=== PATIENT | female | born 1965 | race Caucasian/White ===

== ENCOUNTER → 2017-01-11 | Outpatient (CLI) | payer MEDICAID ==
--- NOTE | 2017-01-11 13:43 | XCELERA REPORT ---
[address] [address] Lower Extremity Venous Evaluation Name: PARMJIT GAMBLE Age: 51 yrs Gender: Female : 1965 Patient Status: Outpatient Patient Location: Study Date: 01/11/2017 10:35 AM Procedure: Color flow and duplex imaging of the veins of the right lower extremity as well as the left Common Femoral vein. Reason For Study: RLE SWELLING Ordering Physician: FIDELIA TORRES Performed By: Kiara Valdes Right Sided Venous Evaluation Normal vessel filling wall to wall, compression and augmentation as well as Colour flow down to the infrageniculate veins. Left Sided Venous Evaluation The left common femoral vein is fully compressible. Spontaneous and phasic flow is present in the left common femoral vein. Interpretation Summary No duplex evidence of DVT or obstruction in the right lower extremity nor in the left Common Femoral vein. : FIDELIA TORRES [place]
== END ==
LOC: SP 10:28
PROVIDERS: ATTEND Specialist
DX: M79.89 Other specified soft tissue disorders (principal); Z92.21 Personal history of antineoplastic chemotherapy
CPT/HCPCS: 93971

== ENCOUNTER → 2017-01-17 | Outpatient (CLI) | payer MEDICAID | LOC: RAD 10:48 | PROVIDERS: ATTEND Specialist | DX: C50.012 Malignant neoplasm of nipple and areola, left female breast (principal) | CPT/HCPCS: 71260; 74160 ==

== ENCOUNTER → 2017-02-22 | Outpatient (CLI) | payer MEDICAID | LOC: RAD 10:19 | PROVIDERS: ATTEND Specialist | DX: C50.012 Malignant neoplasm of nipple and areola, left female breast (principal) | CPT/HCPCS: 78306; A9503; Q9969 ==

== ENCOUNTER → 2017-03-14 | Outpatient (CLI) | payer MEDICAID ==
--- NOTE | 2017-03-14 22:18 | XCELERA REPORT ---
[address] [address] Transthoracic Echocardiogram Report Name: PARMJIT GAMBLE Age: 51 yrs Gender: Female : 1965 Patient Status: Outpatient Patient Location: Study Date: 03/14/2017 11:04 AM Height: 62 in Weight: 198 lb BSA: 1.9 m2 Procedure: A complete two-dimensional transthoracic echocardiogram was performed (2D, M-mode, spectral and color flow Doppler). The study was technically difficult with many images being suboptimal in quality. Reason For Study: ANTHRACYCLINE USE Z51.11 Ordering Physician: FIDELIA TORRES Performed By: Ricki Saravia Interpretation Summary The study was technically difficult with many images being suboptimal in quality. Left ventricular systolic function is borderline reduced. The Ejection Fraction estimate is 50-55% There is normal left ventricular wall thickness. The left ventricle is grossly normal size. Doppler measurements suggest impaired left ventricular relaxation, which is associated with grade I/IV or mild diastolic dysfunction Regional wall motion abnormalities cannot be excluded due to limited visualization. The right ventricular systolic function is normal. The right atrium is normal in size The left atrial size is normal. There is no mitral valve stenosis. There is a mild to moderate amount of mitral regurgitation There is no aortic valve stenosis No aortic regurgitation is present. There is a mild amount of tricuspid regurgitation There is mild pulmonary hypertension by echo Right ventricular systolic pressure is estimated to be elevated at 30- 40mmHg. There is no pericardial effusion. MMode/2D Measurements \T\ Calculations RVDd: 2.8 cm LVIDd: 5.1 cm FS: 30.4 % Ao root diam: 3.1 cm IVSd: 0.79 cm LVIDs: 3.6 cm EDV(Teich): 125.9 ml LVPWd: 0.83 cm ESV(Teich): 53.6 ml Ao root area: 7.6 cm2 EF(Teich): 57.5 % LA dimension: 3.6 cm Doppler Measurements \T\ Calculations MV E max kristian: MV P1/2t max kristian: Ao V2 max: LV V1 max P.6 cm/sec 97.4 cm/sec 107.8 cm/sec 4.5 mmHg MV A max kristian: MV P1/2t: 45.8 msec Ao max PG: LV V1 max: 77.9 cm/sec 4.6 mmHg 105.6 cm/sec MV E/A: 1.3 MVA(P1/2t): 4.8 cm2 MV dec slope: 623.3 cm/sec2 PA V2 max: TR max kristian: RAP systole: 60.7 cm/sec 238.2 cm/sec 10.0 mmHg PA max PG: TR max P.7 mmHg 1.5 mmHg RVSP(TR): 32.7 mmHg Left Ventricle The left ventricle is grossly normal size. There is normal left ventricular wall thickness. Left ventricular systolic function is borderline reduced. The Ejection Fraction estimate is 50-55%. Doppler measurements suggest impaired left ventricular relaxation, which is associated with grade I/IV or mild diastolic dysfunction. Regional wall motion abnormalities cannot be excluded due to limited visualization. Right Ventricle The right ventricle is grossly normal size. There is normal right ventricular wall thickness. The right ventricular systolic function is normal. Atria The right atrium is normal in size. The left atrial size is normal. Interarterial septum not well visualized and not well dopplered. Cannot comment on ASD/PFO presence. Mitral Valve The mitral valve leaflets are sclerotic, but show no functional abnormalities. There is no mitral valve stenosis. There is a mild to moderate amount of mitral regurgitation. Aortic Valve The aortic valve is grossly normal. There is no aortic valve stenosis. No aortic regurgitation is present. Tricuspid Valve The tricuspid valve is not well visualized, but is grossly normal. There is no tricuspid stenosis. There is a mild amount of tricuspid regurgitation. There is mild pulmonary hypertension by echo. Right ventricular systolic pressure is estimated to be elevated at 30-40mmHg. Pulmonic Valve The pulmonic valve is not well visualized. Great Vessels The aortic root is not well visualized but is probably normal size. The inferior vena cava appeared normal and decreased > 50% with respiration (RAP 5-10 mmHg). Effusions There is no pericardial effusion. : FIDELIA TORRES > Lana Latif
== END ==
LOC: SP 10:46
PROVIDERS: ATTEND Specialist
DX: Z51.11 Encounter for antineoplastic chemotherapy (principal)
CPT/HCPCS: 93306

== ENCOUNTER → 2017-03-22 | Outpatient (CLI) | payer MEDICAID | LOC: RAD 16:06 | PROVIDERS: ATTEND Student in an Organized Health Care Education/Training Program | DX: M75.01 Adhesive capsulitis of right shoulder (principal); M79.641 Pain in right hand ==

== ENCOUNTER → 2017-04-07 | Outpatient (CLI) | payer MEDICAID | LOC: RAD 09:44 | PROVIDERS: ATTEND Student in an Organized Health Care Education/Training Program | DX: M75.01 Adhesive capsulitis of right shoulder (principal); M25.512 Pain in left shoulder ==

== ENCOUNTER → 2017-05-06 | Outpatient (CLI) | payer MEDICAID ==
--- NOTE | 2017-05-06 12:46 | RADIOLOGY REPORT (SQ) ---
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 Reconstructed coronal and sagittal MPR images reviewed. All images stored on PACS. All CT scanners at this facility use dose modulation, iterative reconstruction, and/or weight based d osing when appropriate to reduce radiation dose to as low as reasonably achievable (ALARA). [facility]: Dose Right [facility]: CareDose [facility]: Dose Right [facility]: Teradose 4D [facility]: [employer] CONTRAST TYPE AND DOSE: contrast/concentration: Isovue 370.00 mg/ml; Total Contrast Delivered: 94.0 ml; Total Saline Delivered: 70.0 ml RENAL FUNCTION: Creatinine 0.8 RADIATION DOSE: 17 mGy . LIMITATIONS: None FINDINGS: SKULL BASE: Intact. Inferior brain parenchyma unremarkable MAJOR SALIVARY GLANDS: No solid or cystic masses. No inflammatory changes. LYMPHADENOPATHY: 2 x 1.6 cm supraclavicular lymph node axial image 55. This is new compared to prior CT soft tissue neck 04/05/2014 and was not included in the field of view of CT chest 01/17/2017. Smaller supraclavicular lymph nodes are present, new compared to [address] chest 01/17/2017 as follo ws: 7 x 6 mm image 63 6 x 5 mm image 60 7 x 6 mm image 59 A new small lymph node is present deep to the left pectoralis major muscle on axial image 89, 10 x 9 mm. MUCOSAL MASSES OR ASYMMETRY: No mucosal masses or asymmetry. LARYNX/CORDS: No abnormal findings. VASCULAR STRUCTURES: The major vessels are patent. LUNG APICES: Clear. BONES: Stable less than 5 mm bone island in the leftward aspect of T1, unchanged from 04/05/2014. THYROID: Normal size. No masses. PARANASAL SINUSES: Clear. OTHER: No other significant finding. IMPRESSION: Left supraclavicular adenopathy New 10 x 9 mm node between the pectoralis major and minor muscles TECHNICAL DOCUMENTATION: JOB ID: [id number] Quality ID # 436: Final reports with documentation of one or more dose reduction techniques (e.g., Au tomated exposure control, adjustment of the mA and/or kV according to patient size, use of iterative reconstruction technique) 2010 [employer]- All Rights Reserved
--- NOTE | 2017-05-06 13:02 | RADIOLOGY REPORT (SQ) ---
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 RENAL FUNCTION: Creatinine 0.8 TECHNIQUE: CT scan of the chest performed using helical scanning technique with dynamic intravenous contrast injection. Images reviewed with lung, soft tissue and bone windows. Reconstructed coronal a nd sagittal MPR images reviewed. All images stored on PACS. CT scan of the abdomen and pelvis performed with intravenous and with oral contrastusing helical scan henry technique with dynamic intravenous contrast injection. Images reviewed with lung, soft tissue a nd bone windows. Reconstructed coronal and sagittal MPR images reviewed. Delayed images for evaluat ion of the urinary system also acquired and evaluated. All images stored on PACS. All CT scanners at this facility use dose modulation, iterative reconstruction, and/or weight based d osing when appropriate to reduce radiation dose to as low as reasonably achievable (ALARA). [facility]: Dose Right [facility]: CareDose [facility]: Dose Right [facility]: Teradose 4D [facility]: [employer] RADIATION DOSE: Total combined dose 45 mGy . LIMITATIONS: None. FINDINGS: CHEST: LUNGS AND PLEURA: No worrisome opacities, nodules, masses. No pneumothorax. No effusions. Bandlike scarring in the lateral aspect of the right middle lobe adjacent to healed rib fractures HILAR AND MEDIASTINAL STRUCTURES: No identified masses or abnormal nodes. HEART AND VASCULAR STRUCTURES: No aneurysm or dissection. No central pulmonary emboli. No pericardi al effusion. HARDWARE: Right-sided permanent central line tip superior vena cava. Surgical clips left chest wall and axilla post left mastectomy THYROID AND OTHER SOFT TISSUES: Post left mastectomy. BONES: No gross lytic or blastic metastatic lesions OTHER: No other significant finding. ABDOMEN AND PELVIS: LIVER: Normal size. No masses or dilated ducts. SPLEEN: Normal size. No focal lesions. PANCREAS: No masses. No significant calcifications. No adjacent inflammation or peripancreatic fluid collections. Pancreatic duct not dilated. GALLBLADDER: Surgically absent ADRENAL GLANDS: No significant masses or asymmetry. RIGHT KIDNEY AND URETER: No solid masses. No significant calcification. No hydronephrosis or hydroure ter. Right lower pole kidney 1.4 cm simple cyst LEFT KIDNEY AND URETER: No solid masses. No significant calcification. No hydronephrosis or hydrouret er. AORTA AND VESSELS: No aneurysm. No dissection. Renal arteries, SMA, celiac without stenosis. RETROPERITONEUM: No retroperitoneal adenopathy, hemorrhage or masses. BOWEL AND PERITONEAL CAVITY: No masses or inflammatory changes. No free fluid or peritoneal masses. Descending and proximal sigmoid colon diverticuli without CT evidence of acute diverticulitis. APPENDIX: Normal. ABDOMINAL WALL: No masses. No hernias. BONES: Bony sclerosis in the rightward L3 pedicle and vertebral body new compared to previous studies worrisome for metastatic disease. OTHER: No other significant finding. IMPRESSION: Post left mastectomy. New 10 x 9 mm lymph node between the left pectoralis major and mi nor muscles worrisome for malignancy New sclerotic lesion in the right L3 pedicle worrisome for bony metastatic disease TECHNICAL DOCUMENTATION: JOB ID: [id number] Quality ID # 436: Final reports with documentation of one or more dose reduction techniques (e.g., Au tomated exposure control, adjustment of the mA and/or kV according to patient size, use of iterative reconstruction technique) 2010 [employer]- All Rights Reserved
== END ==
LOC: RAD 08:37
PROVIDERS: ATTEND Specialist
DX: C50.012 Malignant neoplasm of nipple and areola, left female breast (principal); M54.2 Cervicalgia
CPT/HCPCS: 70491; 71260; 74177

== ENCOUNTER → 2017-06-07 | Outpatient (CLI) | payer MEDICAID ==
--- NOTE | 2017-06-07 16:55 | RADIOLOGY REPORT (SQ) ---
EXAM DESCRIPTION: MRI LT UPPER JOINT WITHOUT COMPLETED DATE/TIME: 06/07/2017 3:59 pm REASON FOR STUDY: PAIN IN LEFT SHOULDER M25.512 PAIN IN LEFT SHOULDER COMPARISON: None. TECHNIQUE: Left shoulder images acquired and stored on PACS. Multiplanar imaging to include fat sens itive sequences such as T1, water sensitive sequences such as FST2/STIR, cartilage sensitive sequence s such as FSPD/gradient-echo sequences. LIMITATIONS: None. FINDINGS: BONE MARROW AND CORTEX: No worrisome bone lesions or marrow replacement. No occult fractur es. JOINT OR BURSAL EFFUSION: Physiologic glenohumeral joint space fluid. Moderate fluid in the subacrom ial/subdeltoid bursa GLENO-HUMERAL ARTICULATION: Normal articulation. No subluxation. No cystic change. No osteophytes or cartilage loss. ACROMION AND AC JOINT: Type 2 No down-sloping or distal spur. Sub-acromial space maintained. No sig nificant AC joint arthropathy. ROTATOR CUFF AND INTERVAL: There is thickening throughout the supraspinatus tendon, with small full-t hickness tears along the anterior edge and posterior edge of the supraspinatus tendon, best shown on sagittal image 5 and coronal images 7 and 9. Infraspinatus, subscapularis intact. No rotator interval tear. No rotator interval thickening to suggest adhesive capsulitis. LABRUM AND BICEPS LABRAL COMPLEX: Intra-articular long head biceps tendon is thickened and high in signal from tendinopathy. Diffusely small irregular glenoid labrum. REMAINDER OF LABRUM AND IGHL : No gross tear or paralabral cyst formation. Labral evaluation is less than optimal without joint distention. No thickening of IGHL to suggest adhesive capsulitis. PERIARTICULAR AND ADJACENT SOFT TISSUES: No masses or abnormal nodes. OTHER: No other significant finding. IMPRESSION: Supraspinatus tendinopathy with small full-thickness anterior and posterior edge tears. Intra-articular long-head biceps tendinopathy with diffusely abnormal labrum TECHNICAL DOCUMENTATION: JOB ID: [id number] [employer]- All Rights Reserved
== END ==
LOC: RAD 14:43
PROVIDERS: ATTEND Student in an Organized Health Care Education/Training Program
DX: M75.102 Unspecified rotator cuff tear or rupture of left shoulder, not specified as traumatic (principal); M25.512 Pain in left shoulder

== ENCOUNTER → 2017-09-14 | Outpatient (CLI) | payer MEDICAID ==
--- NOTE | 2017-09-14 11:06 | RADIOLOGY REPORT (SQ) ---
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 Reconstructed coronal and sagittal MPR images reviewed. All images stored on PACS. All CT scanners at this facility use dose modulation, iterative reconstruction, and/or weight based d osing when appropriate to reduce radiation dose to as low as reasonably achievable (ALARA). [facility]: Dose Right [facility]: CareDose [facility]: Dose Right [facility]: Teradose 4D [facility]: [employer] CONTRAST TYPE AND DOSE: contrast/concentration: Isovue 370.00 mg/ml; Total Contrast Delivered: 95.0 ml; Total Saline Delivered: 65.0 ml RENAL FUNCTION: Creatinine 0.9 RADIATION DOSE: Up-to-date CT equipment and radiation dose reduction techniques were employed. CTDIv ol: 18.3 - 28.9 mGy. DLP: 4415 mGy-cm. . LIMITATIONS: None. FINDINGS: SKULL BASE: Intact. MAJOR SALIVARY GLANDS: No solid or cystic masses. No inflammatory changes. LYMPHADENOPATHY: Left supraclavicular lymph nodes are present as follows: 1.9 x 1.3 cm axial image 49 (was 2.1 x 1.6 cm on 05/06/2017) 6.5 mm axial image 53 (was 7 mm 05/06/2017) 3 mm axial image 53 (was 6 mm 05/06/2017) MUCOSAL MASSES OR ASYMMETRY: No mucosal masses or asymmetry. LARYNX/CORDS: No abnormal findings. VASCULAR STRUCTURES: The major vessels are patent. LUNG APICES: Clear. BONES: 5 mm sclerotic focus in the left T7 vertebral body unchanged since 2013 THYROID: Normal size. No masses. PARANASAL SINUSES: Clear. OTHER: No other significant finding. IMPRESSION: Slight decrease in size of the left supraclavicular lymph nodes as compared to prior CT exam 05/06/2017. TECHNICAL DOCUMENTATION: JOB ID: [id number] Quality ID # 436: Final reports with documentation of one or more dose reduction techniques (e.g., Au tomated exposure control, adjustment of the mA and/or kV according to patient size, use of iterative reconstruction technique) 2010 [employer]- All Rights Reserved
--- NOTE | 2017-09-14 11:23 | RADIOLOGY REPORT (SQ) ---
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 RENAL FUNCTION: Creatinine 0.9 TECHNIQUE: CT scan of the chest performed using helical scanning technique with dynamic intravenous contrast injection. Images reviewed with lung, soft tissue and bone windows. Reconstructed coronal a nd sagittal MPR images reviewed. All images stored on PACS. CT scan of the abdomen and pelvis performed with intravenous and without oral contrastusing helical s klaudia technique with dynamic intravenous contrast injection. Images reviewed with lung, soft tissu e and bone windows. Reconstructed coronal and sagittal MPR images reviewed. Delayed images for eval uation of the urinary system also acquired and evaluated. All images stored on PACS. All CT scanners at this facility use dose modulation, iterative reconstruction, and/or weight based d osing when appropriate to reduce radiation dose to as low as reasonably achievable (ALARA). [facility]: Dose Right [facility]: CareDose [facility]: Dose Right [facility]: Teradose 4D [facility]: [employer] RADIATION DOSE: Total combined [address] chest abdomen pelvis. LIMITATIONS: None. FINDINGS: CHEST: LUNGS AND PLEURA: Stable bandlike scarring in the periphery of the right middle and lower lobes on ax ial image 30, unchanged from 04/05/2014. No worrisome pulmonary nodules. No acute infiltrates. No pleural effusion. No pneumothorax. HILAR AND MEDIASTINAL STRUCTURES: No identified masses or abnormal nodes. Small hiatal hernia HEART AND VASCULAR STRUCTURES: No aneurysm or dissection. No central pulmonary emboli. No pericardi al effusion. HARDWARE: Surgical clips post resection of the left-sided axillary lymph nodes. Old left mastectomy. Right permanent central line tip superior vena cava. THYROID AND OTHER SOFT TISSUES: No masses. No adenopathy. BONES: Diffuse degenerative changes thoracic spine OTHER: No other significant finding. ABDOMEN AND PELVIS: LIVER: Normal size. No masses. No dilated ducts. SPLEEN: Normal size. No focal lesions. PANCREAS: No masses. No significant calcifications. No adjacent inflammation or peripancreatic fluid collections. Pancreatic duct not dilated. GALLBLADDER: Surgically absent ADRENAL GLANDS: No significant masses or asymmetry. RIGHT KIDNEY AND URETER: No solid masses. Less than 2 cm cyst right lower pole kidney. No significa nt calcification. No hydronephrosis or hydroureter. LEFT KIDNEY AND URETER: No solid masses. No significant calcification. No hydronephrosis or hydrouret er. AORTA AND VESSELS: No aneurysm. No dissection. Renal arteries, SMA, celiac without stenosis. RETROPERITONEUM: No retroperitoneal adenopathy, hemorrhage or masses. BOWEL AND PERITONEAL CAVITY: No masses or inflammatory changes. No free fluid or peritoneal masses. APPENDIX: Normal. ABDOMINAL WALL: No masses. No hernias. BONES: 1 cm sclerotic lesion right L3 pedicle unchanged from PET-CT 07/25/2016. PELVIS: No other significant finding. No adenopathy. No free fluid. Normal size female pelvic orga ns. IMPRESSION: Left axillary lymph nodes seen 05/06/2017 have been resected. 1 cm focus of bony sclerosis in the right L3 pedicle is unchanged from PET-CT 07/25/[address] OF THE ABDOMEN AND PELVIS WITH ORAL AND INTRAVENOUS CONTRAST. TECHNICAL DOCUMENTATION: JOB ID: [id number] Quality ID # 436: Final reports with documentation of one or more dose reduction techniques (e.g., Au tomated exposure control, adjustment of the mA and/or kV according to patient size, use of iterative reconstruction technique) 2010 [employer]- All Rights Reserved
--- NOTE | 2017-09-14 12:57 | RADIOLOGY REPORT (SQ) ---
EXAM DESCRIPTION: NM WHOLE BODY BONE SCAN COMPLETED DATE/TIME: 09/14/2017 11:52 am REASON FOR STUDY: MAL TITO OF NIPPLE/AREOLA. 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 ADDITIONAL DRUGS AND DOSES: None. TECHNIQUE: Routine delayed images at 3 hours post radionuclide injection acquired of the bony skelet on including anterior and posterior whole-body projections and additional focused images as needed. LIMITATIONS: None. FINDINGS: BONES: There is focal increased uptake in the left frontal skull that is new. No signific ant abnormality is seen in the left shoulder, neck, or lumbar spine. No abnormal uptake is seen in a reas in the cervical and lumbar spine where by history the patient has metastases. KIDNEYS: Symmetric excretion without obstruction. OTHER: No other significant finding. IMPRESSION: There is a new area of focal uptake left frontal aspect of the skull. No other signific ant abnormal skeletal uptake is demonstrated. COMMENT: Quality measure 147: Current bone scan is compared with any available plain radiographs, p rior bone scans, and CT/MRI. TECHNICAL DOCUMENTATION: JOB ID: [id number] [employer]- All Rights Reserved
== END ==
LOC: RAD 08:06
PROVIDERS: ATTEND Internal Medicine
DX: C50.012 Malignant neoplasm of nipple and areola, left female breast (principal)
CPT/HCPCS: 78306; 70491; 71260; 74177; A9561

== ENCOUNTER → 2017-12-12 | Outpatient (CLI) | payer MEDICAID, OTHER ==
--- NOTE | 2017-12-12 16:52 | RADIOLOGY REPORT (SQ) ---
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 Reconstructed coronal and sagittal MPR images reviewed. All images stored on PACS. All CT scanners at this facility use dose modulation, iterative reconstruction, and/or weight based d osing when appropriate to reduce radiation dose to as low as reasonably achievable (ALARA). [facility]: Dose Right [facility]: CareDose [facility]: Dose Right [facility]: Teradose 4D [facility]: [employer] CONTRAST TYPE AND DOSE: 90 mL of Isovue 370 RENAL FUNCTION: Creatinine 0.7 RADIATION DOSE: 16.3 mGy . LIMITATIONS: None. FINDINGS: SKULL BASE: Intact. MAJOR SALIVARY GLANDS: No solid or cystic masses. No inflammatory changes. LYMPHADENOPATHY: No adenopathy. MUCOSAL MASSES OR ASYMMETRY: No mucosal masses or asymmetry. LARYNX/CORDS: No abnormal findings. VASCULAR STRUCTURES: The major vessels are patent. LUNG APICES: Clear. BONES: Intact. THYROID: Normal size. No masses. PARANASAL SINUSES: Clear. OTHER: Right-sided permanent central line tip superior vena cava IMPRESSION: NO SIGNIFICANT FINDING IN THE SOFT TISSUES OF THE NECK. TECHNICAL DOCUMENTATION: JOB ID: [id number] Quality ID # 436: Final reports with documentation of one or more dose reduction techniques (e.g., Au tomated exposure control, adjustment of the mA and/or kV according to patient size, use of iterative reconstruction technique) 2010 [employer]- All Rights Reserved
--- NOTE | 2017-12-12 16:56 | RADIOLOGY REPORT (SQ) ---
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 The route of agent administration: Intravenous. ADDITIONAL DRUGS AND DOSES: None. TECHNIQUE: Routine delayed images at 3 hours post radionuclide injection acquired of the bony skelet on including anterior and posterior whole-body projections and additional focused images as needed. LIMITATIONS: None. FINDINGS: BONES: Focal area of abnormal increase uptake again seen in the left frontal region the sk ull, stable prior study. No additional areas of abnormal uptake identified. KIDNEYS: Symmetric excretion without obstruction. OTHER: No other significant finding. IMPRESSION: Stable appearance. Small focal area of abnormal uptake again seen left frontal region of the skull. COMMENT: Quality measure 147: TECHNICAL DOCUMENTATION: JOB ID: [id number] [employer]- All Rights Reserved
--- NOTE | 2017-12-12 17:11 | RADIOLOGY REPORT (SQ) ---
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 Images reviewed with lung, soft tissue and bone windows. Reconstructed coronal a nd sagittal MPR images reviewed. All images stored on PACS. CT scan of the abdomen and pelvis performed with intravenous and without oral contrastusing helical s klaudia technique with dynamic intravenous contrast injection. Images reviewed with lung, soft tissu e and bone windows. Reconstructed coronal and sagittal MPR images reviewed. Delayed images for eval uation of the urinary system also acquired and evaluated. All images stored on PACS. All CT scanners at this facility use dose modulation, iterative reconstruction, and/or weight based d osing when appropriate to reduce radiation dose to as low as reasonably achievable (ALARA). [facility]: Dose Right [facility]: CareDose [facility]: Dose Right [facility]: Teradose 4D [facility]: [employer] RADIATION DOSE: CT Rad equipment meets quality standard of care and radiation dose reduction techniq ues were employed. CTDIvol: 16.3 - 23.4 mGy. DLP: 3143 mGy-cm. . LIMITATIONS: None. FINDINGS: CHEST: LUNGS AND PLEURA: Stable bandlike scarring along the periphery of the right upper lobe. No worrisome pulmonary nodules. No pleural effusion. No pneumothorax. HILAR AND MEDIASTINAL STRUCTURES: No identified masses or abnormal nodes. HEART AND VASCULAR STRUCTURES: No aneurysm or dissection. No central pulmonary emboli. No pericardi al effusion. Stable mild cardiomegaly HARDWARE: Old right permanent central line tip superior vena cava. Caps. THYROID AND OTHER SOFT TISSUES: No masses. No adenopathy. Specifically, no recurrent left axillary adenopathy BONES: Stable 5 mm focus of bony sclerosis in the left C7 vertebral body, unchanged since 04/05/2014. OTHER: No other significant finding. ABDOMEN AND PELVIS: LIVER: Normal size. No masses. No dilated ducts. SPLEEN: Normal size. No focal lesions. PANCREAS: No masses. No significant calcifications. No adjacent inflammation or peripancreatic fluid collections. Pancreatic duct not dilated. GALLBLADDER: Surgically absent ADRENAL GLANDS: Mild diffuse stable adrenal enlargement RIGHT KIDNEY AND URETER: No solid masses. 1.7 cm cyst right lower pole kidney. No significant calci fication. No hydronephrosis or hydroureter. LEFT KIDNEY AND URETER: No solid masses. No significant calcification. No hydronephrosis or hydrouret er. AORTA AND VESSELS: No aneurysm. No dissection. Renal arteries, SMA, celiac without stenosis. RETROPERITONEUM: No retroperitoneal adenopathy, hemorrhage or masses. BOWEL AND PERITONEAL CAVITY: No masses or inflammatory changes. No free fluid or peritoneal masses. APPENDIX: Normal. ABDOMINAL WALL: No masses. No hernias. BONES: Stable 12 mm focus of bony sclerosis right L3 pedicle, unchanged since 07/25/2016 OTHER: No other significant finding. IMPRESSION: Post left mastectomy. No CT findings metastatic breast cancer over the chest Post cholecystectomy. Stable bony sclerosis right L3 pedicle compared to 07/25/2016 TECHNICAL DOCUMENTATION: JOB ID: [id number] Quality ID # 436: Final reports with documentation of one or more dose reduction techniques (e.g., Au tomated exposure control, adjustment of the mA and/or kV according to patient size, use of iterative reconstruction technique) 2010 [employer]- All Rights Reserved
== END ==
LOC: RAD 10:46
PROVIDERS: ATTEND Internal Medicine
DX: C50.012 Malignant neoplasm of nipple and areola, left female breast (principal); C79.51 Secondary malignant neoplasm of bone; Z90.12 Acquired absence of left breast and nipple
CPT/HCPCS: 78306; 70491; 71260; 74177; A9561; Q9969

== ENCOUNTER → 2018-03-14 | Outpatient (CLI) | payer MEDICAID ==
--- NOTE | 2018-03-14 13:25 | RADIOLOGY REPORT (SQ) ---
EXAM DESCRIPTION: CT SOFT TISSUE NECK WITH COMPLETED DATE/TIME: 03/14/2018 9:29 am REASON FOR STUDY: BREAST CA C50.012 MALIGNANT NEOPLASM OF NIPPLE AND AREOLA, LEFT FEMALE COMPARISON: CT soft tissue neck 05/06/2017, 09/14/2017, 12/12/2017 TECHNIQUE: Post IV contrasted scanning from skull base through lung apices with review of bone, soft tissue and lung windows. Reconstructed coronal and sagittal MPR images reviewed. All images stored on PACS. All CT scanners at this facility use dose modulation, iterative reconstruction, and/or weight based d osing when appropriate to reduce radiation dose to as low as reasonably achievable (ALARA). [facility]: Dose Right [facility]: CareDose [facility]: Dose Right [facility]: Teradose 4D [facility]: [employer] CONTRAST TYPE AND DOSE: 90 mL Isovue 370- low osmolar. RENAL FUNCTION: Creatinine 0.8 RADIATION DOSE: 16 mGy . LIMITATIONS: None FINDINGS: SKULL BASE: Inferior brain parenchyma in the field of view unremarkable MAJOR SALIVARY GLANDS: No solid or cystic masses. No inflammatory changes. LYMPHADENOPATHY: The 1.4 x 1.1 cm left supraclavicular lymph node is present (was 1.7 x 1.2 cm on 11/22, was 1.9 x 1.3 cm on 09/14/2017). A 7 mm left supraclavicular lymph node is present on image 60 (was 7 mm on 12/12/2017, 09/14/2017, 05/06/2017). MUCOSAL MASSES OR ASYMMETRY: No mucosal masses or asymmetry. LARYNX/CORDS: No abnormal findings. VASCULAR STRUCTURES: The major vessels are patent. LUNG APICES: Clear. BONES: Benign 5 mm sclerotic focus left 7 vertebral body unchanged THYROID: Normal size. No masses. PARANASAL SINUSES: Clear. OTHER: No other significant finding. IMPRESSION: Small left supraclavicular lymph nodes. Otherwise unremarkable study. TECHNICAL DOCUMENTATION: JOB ID: [id number] Quality ID # [id number]: Final reports with documentation of one or more dose reduction techniques (e.g., Au tomated exposure control, adjustment of the mA and/or kV according to patient size, use of iterative reconstruction technique) 2010 [employer]- All Rights Reserved Reading location - IP/workstation name: [facility]
--- NOTE | 2018-03-14 13:48 | RADIOLOGY REPORT (SQ) ---
EXAM DESCRIPTION: CT CHEST WITH; CT ABD/PELVIS WITH IV ONLY COMPLETED DATE/TIME: 03/14/2018 9:29 am REASON FOR STUDY: BREAST CA C50.012 MALIGNANT NEOPLASM OF NIPPLE AND AREOLA, LEFT FEMALE COMPARISON: 04/05/2014, 12/24/2015, 09/14/2017, 12/12/2017 CONTRAST TYPE AND DOSE: contrast/concentration: Isovue 370.00 mg/ml; Total Contrast Delivered: 90.0 ml; Total Saline Delivered: 70.0 ml 90 mL IV Isovue 370- low osmolar. RENAL FUNCTION: Creatinine 0.8 TECHNIQUE: CT scan of the chest performed using helical scanning technique with dynamic intravenous contrast injection. Images reviewed with lung, soft tissue and bone windows. Reconstructed coronal a nd sagittal MPR images reviewed. All images stored on PACS. CT scan of the abdomen and pelvis performed with intravenous and without oral contrastusing helical s klaudia technique with dynamic intravenous contrast injection. Images reviewed with lung, soft tissu e and bone windows. Reconstructed coronal and sagittal MPR images reviewed. Delayed images for eval uation of the urinary system also acquired and evaluated. All images stored on PACS. All CT scanners at this facility use dose modulation, iterative reconstruction, and/or weight based d osing when appropriate to reduce radiation dose to as low as reasonably achievable (ALARA). [facility]: Dose Right [facility]: CareDose [facility]: Dose Right [facility]: Teradose 4D [facility]: [employer] RADIATION DOSE: Total radiation dose is 42.8 mGy for the chest abdomen pelvis exam . LIMITATIONS: None. FINDINGS: CHEST: LUNGS AND PLEURA: No worrisome lung nodules. Bandlike scarring along the right lower lateral lung is unchanged. No pleural effusion. No pneumothorax. HILAR AND MEDIASTINAL STRUCTURES: No identified masses or abnormal nodes. Small hiatal hernia HEART AND VASCULAR STRUCTURES: No aneurysm or dissection. No central pulmonary emboli. No pericardi al effusion. HARDWARE: Right-sided permanent central line tip superior vena cava THYROID AND OTHER SOFT TISSUES: Post left mastectomy BONES: No significant finding. OTHER: Small left supraclavicular lymph nodes are decreased in size compared to previous exams. Plea se see CT soft tissue neck for further details. ABDOMEN AND PELVIS: LIVER: Normal size. No masses. No dilated ducts. SPLEEN: Normal size. No focal lesions. PANCREAS: No masses. No significant calcifications. No adjacent inflammation or peripancreatic fluid collections. Pancreatic duct not dilated. GALLBLADDER: Surgically absent ADRENAL GLANDS: No significant masses or asymmetry. RIGHT KIDNEY AND URETER: No solid masses. 1.6 cm right lower pole renal cortical cyst. No significa nt calcification. No hydronephrosis or hydroureter. LEFT KIDNEY AND URETER: No solid masses. No significant calcification. No hydronephrosis or hydrouret er. AORTA AND VESSELS: No aneurysm. No dissection. Renal arteries, SMA, celiac without stenosis. RETROPERITONEUM: No retroperitoneal adenopathy, hemorrhage or masses. BOWEL AND PERITONEAL CAVITY: No masses or inflammatory changes. No free fluid or peritoneal masses. APPENDIX: Normal. ABDOMINAL WALL: No masses. No hernias. PELVIS: No mass or free fluid. Normal bladder. Normal size female pelvic organs BONES: Stable 11 mm sclerotic lesion right L3 pedicle OTHER: No other significant finding. IMPRESSION: Post left mastectomy No CT evidence of progression of disease over the chest abdomen and pelvis TECHNICAL DOCUMENTATION: JOB ID: [id number] Quality ID # 436: Final reports with documentation of one or more dose reduction techniques (e.g., Au tomated exposure control, adjustment of the mA and/or kV according to patient size, use of iterative reconstruction technique) 2010 [employer]- All Rights Reserved Reading location - IP/workstation name: [email or web address]
--- NOTE | 2018-03-14 13:50 | RADIOLOGY REPORT (SQ) ---
EXAM DESCRIPTION: NM WHOLE BODY BONE SCAN COMPLETED DATE/TIME: 03/14/2018 12:06 pm REASON FOR STUDY: MAL TITO OF NIPPLE AND AREOLA, LEFT FEMALE BREAST C50.012 MALIGNANT NEOPLASM OF NI PPLE AND AREOLA, LEFT FEMALE COMPARISON: Bone scan 04/03/2014, 12/29/2015, 09/14/2017, 12/12/[address] chest abdomen pelvis exams RADIONUCLIDE AND DOSE: 21 millicuries Tc99m MDP. The route of agent administration: Intravenous. ADDITIONAL DRUGS AND DOSES: None. TECHNIQUE: Routine delayed images at 3 hours post radionuclide injection acquired of the bony skelet on including anterior and posterior whole-body projections and additional focused images as needed. LIMITATIONS: None. FINDINGS: BONES: There is a small focus of increased uptake over the left frontal calvarium, stable compared to 12/12/2017 and 09/14/2017. Tiny 5 mm sclerotic focus in the C7 vertebral body, 1 cm sclerotic focus in the right L3 pedicle are not apparent by bone scan. KIDNEYS: Symmetric excretion without obstruction. OTHER: No other significant finding. IMPRESSION: Stable bone scan compared to 12/12/2017 and 09/14/2017 COMMENT: Quality measure 147: Current bone scan is compared with any available plain radiographs, p rior bone scans, and CT/MRI. TECHNICAL DOCUMENTATION: JOB ID: [id number] [employer]- All Rights Reserved Reading location - IP/workstation name: [facility]-RR
== END ==
LOC: RAD 08:19
PROVIDERS: ATTEND Internal Medicine
DX: C50.012 Malignant neoplasm of nipple and areola, left female breast (principal); Z90.12 Acquired absence of left breast and nipple
CPT/HCPCS: 82565; 78306; 70491; 71260; 74177; A9561; Q9969

== ENCOUNTER → 2018-06-09 | Outpatient (CLI) | payer MEDICAID ==
--- NOTE | 2018-06-09 12:16 | RADIOLOGY REPORT (SQ) ---
EXAM DESCRIPTION: CT SOFT TISSUE NECK WITH COMPLETED DATE/TIME: 06/09/2018 11:21 am REASON FOR STUDY: BREAST CA C50.012 MALIGNANT NEOPLASM OF NIPPLE AND AREOLA, LEFT FEMALE COMPARISON: Whole-body bone scan 03/14/2018 CT soft tissue neck 03/14/2018, 12/12/2017, 04/05/2014 TECHNIQUE: Post IV contrasted scanning from skull base through lung apices with review of bone, soft tissue and lung windows. Reconstructed coronal and sagittal MPR images reviewed. All images stored on PACS. All CT scanners at this facility use dose modulation, iterative reconstruction, and/or weight based d osing when appropriate to reduce radiation dose to as low as reasonably achievable (ALARA). [facility]: Dose Right [facility]: CareDose [facility]: Dose Right [facility]: Teradose 4D [facility]: [employer] CONTRAST TYPE AND DOSE: 82 mL of IV Isovue 370- low osmolar. RENAL FUNCTION: Creatinine 0.7 RADIATION DOSE: 14 mGy . LIMITATIONS: None. FINDINGS: SKULL BASE: Intact. MAJOR SALIVARY GLANDS: No solid or cystic masses. No inflammatory changes. LYMPHADENOPATHY: Unchanged left supraclavicular lymph node 1.4 x 1.1 cm in size axial image 62. Unch anged left supraclavicular 7 x 7 mm lymph node axial image 71. MUCOSAL MASSES OR ASYMMETRY: No mucosal masses or asymmetry. LARYNX/CORDS: No abnormal findings. VASCULAR STRUCTURES: The major vessels are patent. LUNG APICES: Clear. BONES: Intact. THYROID: Normal size. No masses. PARANASAL SINUSES: Clear. OTHER: No other significant finding. IMPRESSION: Stable left supraclavicular lymph nodes TECHNICAL DOCUMENTATION: JOB ID: [id number] Quality ID # 436: Final reports with documentation of one or more dose reduction techniques (e.g., Au tomated exposure control, adjustment of the mA and/or kV according to patient size, use of iterative reconstruction technique) 2010 [employer]- All Rights Reserved Reading location - IP/workstation name: [email or web address]
--- NOTE | 2018-06-09 12:30 | RADIOLOGY REPORT (SQ) ---
EXAM DESCRIPTION: CT CHEST WITH; CT ABD/PELVIS WITH IV ONLY COMPLETED DATE/TIME: 06/09/2018 11:21 am REASON FOR STUDY: BREAST CA C50.012 MALIGNANT NEOPLASM OF NIPPLE AND AREOLA, LEFT FEMALE COMPARISON: Bone scan 03/14/2018 CT chest abdomen and pelvis 03/14/2018, 12/12/2017 CONTRAST TYPE AND DOSE: contrast/concentration: Isovue 370.00 mg/ml; Total Contrast Delivered: 82.0 ml; Total Saline Delivered: 68.0 ml RENAL FUNCTION: Creatinine 0.7 TECHNIQUE: CT scan of the chest performed using helical scanning technique with dynamic intravenous contrast injection. Images reviewed with lung, soft tissue and bone windows. Reconstructed coronal a nd sagittal MPR images reviewed. All images stored on PACS. CT scan of the abdomen and pelvis performed with intravenous and without oral contrastusing helical s klaudia technique with dynamic intravenous contrast injection. Images reviewed with lung, soft tissu e and bone windows. Reconstructed coronal and sagittal MPR images reviewed. Delayed images for eval uation of the urinary system also acquired and evaluated. All images stored on PACS. All CT scanners at this facility use dose modulation, iterative reconstruction, and/or weight based d osing when appropriate to reduce radiation dose to as low as reasonably achievable (ALARA). [facility]: Dose Right [facility]: CareDose [facility]: Dose Right [facility]: Teradose 4D [facility]: [employer] RADIATION DOSE: 36.8 mGy . LIMITATIONS: None. FINDINGS: CHEST: LUNGS AND PLEURA: No opacities, nodules, masses. No pneumothorax. No effusions. HILAR AND MEDIASTINAL STRUCTURES: No identified masses or abnormal nodes. HEART AND VASCULAR STRUCTURES: No aneurysm or dissection. No central pulmonary emboli. No pericardi al effusion. HARDWARE: Right permanent central line tip superior vena cava THYROID AND OTHER SOFT TISSUES: Stable left supraclavicular lymph nodes. Please see the CT soft tiss ue neck today for further details. Old left mastectomy. BONES: No significant finding. OTHER: No other significant finding. ABDOMEN AND PELVIS: LIVER: Normal size. No masses. No dilated ducts. SPLEEN: Normal size. No focal lesions. PANCREAS: No masses. No significant calcifications. No adjacent inflammation or peripancreatic fluid collections. Pancreatic duct not dilated. GALLBLADDER: Surgically absent ADRENAL GLANDS: No significant masses or asymmetry. RIGHT KIDNEY AND URETER: No solid masses. 2 cm cyst right lower pole kidney. No significant calcifi cation. No hydronephrosis or hydroureter. LEFT KIDNEY AND URETER: No solid masses. No significant calcification. No hydronephrosis or hydrouret er. AORTA AND VESSELS: No aneurysm. No dissection. Renal arteries, SMA, celiac without stenosis. RETROPERITONEUM: No retroperitoneal adenopathy, hemorrhage or masses. BOWEL AND PERITONEAL CAVITY: No CT evidence of bowel obstruction. Colonic diverticuli without CT sig ns of acute diverticulitis. No masses or inflammatory changes. No free fluid or peritoneal masses. APPENDIX: Normal. ABDOMINAL WALL: No masses. No hernias. PELVIS: No mass or free fluid. Normal bladder. BONES: No significant or acute findings. OTHER: No other significant finding. IMPRESSION: Old left mastectomy. Stable left supraclavicular lymph nodes. CT chest abdomen pelvis otherwise unremarkable TECHNICAL DOCUMENTATION: JOB ID: [id number] Quality ID # 436: Final reports with documentation of one or more dose reduction techniques (e.g., Au tomated exposure control, adjustment of the mA and/or kV according to patient size, use of iterative reconstruction technique) 2010 [employer]- All Rights Reserved Reading location - IP/workstation name: [email or web address]
--- NOTE | 2018-06-09 12:30 | RADIOLOGY REPORT (SQ) ---
EXAM DESCRIPTION: CT CHEST WITH; CT ABD/PELVIS WITH IV ONLY COMPLETED DATE/TIME: 06/09/2018 11:21 am REASON FOR STUDY: BREAST CA C50.012 MALIGNANT NEOPLASM OF NIPPLE AND AREOLA, LEFT FEMALE COMPARISON: Bone scan 03/14/2018 CT chest abdomen and pelvis 03/14/2018, 12/12/2017 CONTRAST TYPE AND DOSE: contrast/concentration: Isovue 370.00 mg/ml; Total Contrast Delivered: 82.0 ml; Total Saline Delivered: 68.0 ml RENAL FUNCTION: Creatinine 0.7 TECHNIQUE: CT scan of the chest performed using helical scanning technique with dynamic intravenous contrast injection. Images reviewed with lung, soft tissue and bone windows. Reconstructed coronal a nd sagittal MPR images reviewed. All images stored on PACS. CT scan of the abdomen and pelvis performed with intravenous and without oral contrastusing helical s klaudia technique with dynamic intravenous contrast injection. Images reviewed with lung, soft tissu e and bone windows. Reconstructed coronal and sagittal MPR images reviewed. Delayed images for eval uation of the urinary system also acquired and evaluated. All images stored on PACS. All CT scanners at this facility use dose modulation, iterative reconstruction, and/or weight based d osing when appropriate to reduce radiation dose to as low as reasonably achievable (ALARA). [facility]: Dose Right [facility]: CareDose [facility]: Dose Right [facility]: Teradose 4D [facility]: [employer] RADIATION DOSE: 36.8 mGy . LIMITATIONS: None. FINDINGS: CHEST: LUNGS AND PLEURA: No opacities, nodules, masses. No pneumothorax. No effusions. HILAR AND MEDIASTINAL STRUCTURES: No identified masses or abnormal nodes. HEART AND VASCULAR STRUCTURES: No aneurysm or dissection. No central pulmonary emboli. No pericardi al effusion. HARDWARE: Right permanent central line tip superior vena cava THYROID AND OTHER SOFT TISSUES: Stable left supraclavicular lymph nodes. Please see the CT soft tiss ue neck today for further details. Old left mastectomy. BONES: No significant finding. OTHER: No other significant finding. ABDOMEN AND PELVIS: LIVER: Normal size. No masses. No dilated ducts. SPLEEN: Normal size. No focal lesions. PANCREAS: No masses. No significant calcifications. No adjacent inflammation or peripancreatic fluid collections. Pancreatic duct not dilated. GALLBLADDER: Surgically absent ADRENAL GLANDS: No significant masses or asymmetry. RIGHT KIDNEY AND URETER: No solid masses. 2 cm cyst right lower pole kidney. No significant calcifi cation. No hydronephrosis or hydroureter. LEFT KIDNEY AND URETER: No solid masses. No significant calcification. No hydronephrosis or hydrouret er. AORTA AND VESSELS: No aneurysm. No dissection. Renal arteries, SMA, celiac without stenosis. RETROPERITONEUM: No retroperitoneal adenopathy, hemorrhage or masses. BOWEL AND PERITONEAL CAVITY: No CT evidence of bowel obstruction. Colonic diverticuli without CT sig ns of acute diverticulitis. No masses or inflammatory changes. No free fluid or peritoneal masses. APPENDIX: Normal. ABDOMINAL WALL: No masses. No hernias. PELVIS: No mass or free fluid. Normal bladder. BONES: No significant or acute findings. OTHER: No other significant finding. IMPRESSION: Old left mastectomy. Stable left supraclavicular lymph nodes. CT chest abdomen pelvis otherwise unremarkable TECHNICAL DOCUMENTATION: JOB ID: [id number] Quality ID # [id number]: Final reports with documentation of one or more dose reduction techniques (e.g., Au tomated exposure control, adjustment of the mA and/or kV according to patient size, use of iterative reconstruction technique) 2010 [employer]- All Rights Reserved Reading location - IP/workstation name: [email or web address]
--- NOTE | 2018-06-09 16:24 | RADIOLOGY REPORT (SQ) ---
EXAM DESCRIPTION: NM WHOLE BODY BONE SCAN COMPLETED DATE/TIME: 06/09/2018 2:37 pm REASON FOR STUDY: BREAST CA C50.012 MALIGNANT NEOPLASM OF NIPPLE AND AREOLA, LEFT FEMALE COMPARISON: 04/03/2014, 12/12/2017, 03/14/2018 bone scan RADIONUCLIDE AND DOSE: 20.7 millicuries Tc99m MDP. The route of agent administration: Intravenous. ADDITIONAL DRUGS AND DOSES: None. TECHNIQUE: Routine delayed images at 3 hour post radionuclide injection acquired of the bony skeleto n including anterior and posterior whole-body projections and additional focused images as needed. LIMITATIONS: None. FINDINGS: BONES: Normal visualization without areas of photopenia or increased bony uptake of radiop harmaceutical. KIDNEYS: Symmetric excretion without obstruction. OTHER: There is increased uptake over the left frontal bone, slightly more prominent than on previous exams. MRI brain without and with contrast recommended for follow-up, to evaluate for any causes of increased uptake in the area like frontal calvarial bone metastatic lesion, frontal meningioma, for frontal sinusitis. IMPRESSION: Increased uptake over the left frontal bone, more prominent than on previous studies. COMMENT: Quality measure 147: Current bone scan is compared with any available plain radiographs, p rior bone scans, and CT/MRI. TECHNICAL DOCUMENTATION: JOB ID: [id number] [employer]- All Rights Reserved Reading location - IP/workstation name: [email or web address]
== END ==
LOC: RAD 10:31
PROVIDERS: ATTEND Physician Assistant Medical
DX: C50.012 Malignant neoplasm of nipple and areola, left female breast (principal); Z90.12 Acquired absence of left breast and nipple
CPT/HCPCS: 82565; 78306; 70491; 71260; 74177; A9561; Q9969

== ENCOUNTER 2018-08-23 10:53 | Emergency (ER) | payer MEDICAID ==
[2018-08-23 11:00] VITALS: BP 132/74
--- NOTE | 2018-08-23 11:30 | ER Document Report ---
ED Head/Face/Scalp Injury - General Chief Complaint: Facial Swelling Stated Complaint: MOUTH PAIN Time Seen by Provider: 08/23/18 11:25 Mode of Arrival: Ambulatory Information source: Patient Notes: Chief complaint: Toothache History of complain:( obtained from----patient) 53 years old female had a right upper molar tooth was removed yesterday started swelling of the right side of the face over the maxillary region and was painful. She was put on amoxicillin. No fever chills. She is stage IV cancer patient on chemotherapy. Onset: As above Duration: 24 hours Severity: Moderate to severe Quality: Sharp Context: Tooth extraction Exacerbating factor and relieving factors: REVIEW OF SYSTEMS: CONSTITUTIONAL : Denies fever, chills, or sweats. Denies recent illness. EENT: Denies eye, ear, throat, or mouth pain or symptoms. Denies nasal or sinus congestion or discharge. Denies throat, tongue, or mouth swelling or difficulty swallowing. CARDIOVASCULAR: Denies chest pain. Denies palpitations or racing or irregular heart beat. Denies ankle edema. RESPIRATORY: Denies cough, cold, or chest congestion. Denies shortness of breath, difficulty breathing, or wheezing. GASTROINTESTINAL: Denies distention. Denies nausea, vomiting, or diarrhea. Denies blood in vomitus, stools, or per rectum. Denies black, tarry stools. Denies constipation. GENITOURINARY: Denies difficulty urinating, painful urination, burning, frequency, blood in urine, or discharge. FEMALE GENITOURINARY: Denies vaginal bleeding, heavy or abnormal periods, irregular periods. Denies vaginal discharge or odor. MUSCULOSKELETAL: Denies back or neck pain or stiffness. Denies joint pain or swelling. SKIN: Denies rash, lesions or sores. HEMATOLOGIC : Denies easy bruising or bleeding. LYMPHATIC: Denies swollen, enlarged glands. NEUROLOGICAL: Denies confusion or altered mental status. Denies passing out or loss of consciousness. Denies dizziness or lightheadedness. Denies headache. Denies weakness or paralysis or loss of use of either side. Denies problems with gait or speech. Denies sensory loss, numbness, or tingling. Denies seizures. PSYCHIATRIC: Denies anxiety or stress. Denies depression, suicidal ideation, or homicidal ideation. ALL OTHER SYSTEMS REVIEWED AND NEGATIVE. PHYSICAL EXAMINATION: GENERAL: Well-appearing, well-nourished and in no acute distress. HEAD: Atraumatic, normocephalic. EYES: Pupils equal round and reactive to light, extraocular movements intact, conjunctiva are normal. ENT: Nares patent, oropharynx clear without exudates. Moist mucous membranes. Right side of the face over the maxillary regionswelling noted and also tenderness over the maxillary sinus. NECK: Normal range of motion, supple without lymphadenopathy LUNGS: Breath sounds clear to auscultation bilaterally and equal. No wheezes rales or rhonchi. HEART: Regular rate and rhythm without murmurs ABDOMEN: Soft, nontender, nondistended abdomen. No guarding, no rebound. No masses appreciated. Examination of genitals-deferred Musculoskeletal: Normal range of motion, no pitting or edema. No cyanosis. NEUROLOGICAL: Cranial nerves grossly intact. Normal speech, normal gait. Normal sensory, motor exams PSYCH: Normal mood, normal affect. SKIN: Warm, Dry, normal turgor, no rashes or lesions noted. Dictation was performed using [employer] voice recognition software TRAVEL OUTSIDE OF THE [place] IN LAST 30 DAYS: No - HPI Notes: Dictated - Related Data Allergies/Adverse Reactions: No Known Allergies Allergy (Verified 08/23/18 10:55) Past Medical History - General Information source: Patient - Social History Smoking Status: Current Every Day Smoker Chew tobacco use (# tins/day): No Frequency of alcohol use: None Drug Abuse: None Family History: None, Reviewed & Not Pertinent Patient has suicidal ideation: No Patient has homicidal ideation: No - Past Medical History Cardiac Medical History: Denies: Hx Coronary Artery Disease, Hx Heart Attack, Hx Hypertension Pulmonary Medical History: Reports: Hx Bronchitis Denies: Hx Asthma, Hx COPD, Hx Pneumonia Neurological Medical History: Denies: Hx Cerebrovascular Accident, Hx Seizures Renal/ Medical History: Denies: Hx Peritoneal Dialysis Malignancy Medical History: Reports: Hx Breast Cancer Musculoskeletal Medical History: Reports Hx Arthritis - RA Past Surgical History: Reports: Hx Mastectomy - left - Immunizations Hx Diphtheria, Pertussis, Tetanus Vaccination: No - Does not recall last tetanus immunization. Review of Systems - Review of Systems Notes: Dictated Physical Exam - Vital signs Vitals: Temp Pulse Resp BP Pulse Ox 99.4 F 91 18 132/74 H 98 08/23/18 10:59 08/23/18 10:59 08/23/18 10:59 10/03/18 10:59 08/23/18 10:59 - Notes Notes: Dictated Course - Vital Signs Vital signs: Temp Pulse Resp BP Pulse Ox 99.4 F 91 18 132/74 H 98 08/23/18 10:59 08/23/18 10:59 08/23/18 10:59 08/23/18 10:59 08/23/18 10:59 Discharge - Discharge Clinical Impression: Dental caries Maxillary sinusitis, acute Qualifiers: Recurrence: recurrent Qualified Code(s): J01.01 - Acute recurrent maxillary sinusitis Condition: Fair Disposition: HOME, SELF-CARE Instructions: Sinusitis ([facility]) Prescriptions: Amox Tr/Potassium Clavulanate [Augmentin 875-125 Tablet] 1 tab PO BID 10 Days tablet Referrals: WHITNEY VALENCIA PA-C [Primary Care Provider] - Follow up as needed
== END 2018-08-23 11:32 | disposition home or self-care (01) ==
LOC: ER 10:53
DX: K02.9 Dental caries, unspecified (principal); J01.01 Acute recurrent maxillary sinusitis; F17.200 Nicotine dependence, unspecified, uncomplicated; C50.919 Malignant neoplasm of unspecified site of unspecified female breast; Z79.899 Other long term (current) drug therapy; Z98.890 Other specified postprocedural states
CPT/HCPCS: 99283

== ENCOUNTER → 2018-11-20 | Outpatient (CLI) | payer MEDICARE, MEDICAID ==
--- NOTE | 2018-11-20 11:24 | RADIOLOGY REPORT (SQ) ---
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 TECHNIQUE: Multiplanar imaging includes noncontrasted T1, T2, FLAIR, and Diffusion with ADC map seq uences. Contrast enhanced T1 images. Images stored on PACS. CONTRAST TYPE AND DOSE: 15 mL Dotarem. RENAL FUNCTION: GFR > 60. LIMITATIONS: None. FINDINGS: ANATOMY: No anomalies. Normal vascular flow voids. Pituitary fossa normal. CSF SPACES: Normal size and contour. No hemorrhage. There is an enhancing mass centered on the infer ior frontal falx, measuring 1.3 cm AP, 8 mm craniocaudal, and 1.2 cm transverse. CEREBRUM: A few high-signal intensity lesions scattered throughout the white matter on FLAIR imaging with distribution suggesting chronic microvascular ischemic change. Sulci and gyri normal in size and contour. No evidence of hemorrhage, mass or extraaxial fluid collection. No enhancing lesions. POSTERIOR FOSSA: No signal alteration. No hemorrhage. No edema, masses or mass effect. Internal audit ory canals, cerebello-pontine angles, mastoids normal. DIFFUSION: Negative for acute or subacute infarction. ORBITS: No masses. Globes normal. PARANASAL SINUSES: Extensive soft tissue and fluid filling the right maxillary sinus. Mucous membran e thickening in the ethmoid sinuses. OTHER: No other significant finding. IMPRESSION: 1. ENHANCING MASS CENTERED ON THE INFERIOR FRONTAL FALX MOST CONSISTENT WITH A MENINGIOMA. 2. NO ENHANCING PARENCHYMAL LESIONS. MINIMAL MICROVASCULAR ISCHEMIC CHANGE. OTHERWISE NORMAL STUDY. 3. EXTENSIVE RIGHT MAXILLARY SINUS DISEASE. EVIDENCE OF ACUTE STROKE: NO. TECHNICAL DOCUMENTATION: JOB ID: [id number] [employer]- All Rights Reserved Reading location - IP/workstation name: [email or web address]
--- NOTE | 2018-11-20 11:35 | RADIOLOGY REPORT (SQ) ---
EXAM DESCRIPTION: CT CHEST WITH COMPLETED DATE/TIME: 11/20/2018 10:20 am REASON FOR STUDY: BREAST CANCER C50.012 MALIGNANT NEOPLASM OF NIPPLE AND AREOLA, LEFT FEMALE COMPARISON: 06/09/2018 and 03/14/2018. TECHNIQUE: CT scan of the chest performed using helical scanning technique with dynamic intravenous contrast injection. Images reviewed with lung, soft tissue and bone windows. Reconstructed coronal and sagittal MPR and MIP images reviewed. All images stored on PACS. All CT scanners at this facility use dose modulation, iterative reconstruction, and/or weight based d osing when appropriate to reduce radiation dose to as low as reasonably achievable (ALARA). [facility]: Dose Right [facility]: CareDose [facility]: Dose Right [facility]: Teradose 4D [facility]: [employer] CONTRAST TYPE AND DOSE: 80 mL Omnipaque 350- low osmolar. RENAL FUNCTION: Creatinine 0.7. RADIATION DOSE: . LIMITATIONS: None. FINDINGS: LUNGS AND PLEURA: No opacities, nodules, masses. No pneumothorax. No effusions. HILAR AND MEDIASTINAL STRUCTURES: No identified masses or abnormal nodes. HEART AND VASCULAR STRUCTURES: No aneurysm or dissection. No central pulmonary emboli. No pericardi al effusion. HARDWARE: Vascular port. UPPER ABDOMEN: No significant findings. Limited exam. THYROID AND OTHER SOFT TISSUES: Left mastectomy. No masses. No adenopathy. BONES: No significant finding. OTHER: No other significant finding. IMPRESSION: STABLE CT OF THE CHEST WITH IV CONTRAST. LEFT MASTECTOMY. NO EVIDENCE OF LOCAL RECURRE NCE OR METASTASES. TECHNICAL DOCUMENTATION: JOB ID: [id number] Quality ID # [id number]: Final reports with documentation of one or more dose reduction techniques (e.g., Au tomated exposure control, adjustment of the mA and/or kV according to patient size, use of iterative reconstruction technique) 2010 [employer]- All Rights Reserved Reading location - IP/workstation name: [email or web address]
--- NOTE | 2018-11-20 11:41 | RADIOLOGY REPORT (SQ) ---
EXAM DESCRIPTION: CT ABD/PELVIS WITH IV ONLY COMPLETED DATE/TIME: 11/20/2018 10:20 am REASON FOR STUDY: BREAST CANCER C50.012 MALIGNANT NEOPLASM OF NIPPLE AND AREOLA, LEFT FEMALE COMPARISON: 06/09/2018 TECHNIQUE: CT scan of the abdomen and pelvis performed using helical scanning technique with dynamic intravenous contrast injection. No oral contrast. Images reviewed with lung, soft tissue, and bone windows. Reconstructed coronal and sagittal MPR images reviewed. Delayed images for evaluation of the urinary system also acquired. All images stored on PACS. All CT scanners at this facility use dose modulation, iterative reconstruction, and/or weight based d osing when appropriate to reduce radiation dose to as low as reasonably achievable (ALARA). [facility]: Dose Right [facility]: CareDose [facility]: Dose Right [facility]: Teradose 4D [facility]: [employer] CONTRAST TYPE AND DOSE: contrast/concentration: Isovue 350.00 mg/ml; Total Contrast Delivered: 80.0 ml; Total Saline Delivered: 68.0 ml RENAL FUNCTION: Creatinine 0.7 RADIATION DOSE: CT Rad equipment meets quality standard of care and radiation dose reduction techniq ues were employed. CTDIvol: 5.8 - 8.4 mGy. DLP: 1006 mGy-cm.. LIMITATIONS: None. FINDINGS: LOWER CHEST: See separate report of the CT of the chest. LIVER: Normal size. No masses. No dilated ducts. SPLEEN: Normal size. No focal lesions. PANCREAS: No masses. No significant calcifications. No adjacent inflammation or peripancreatic fluid collections. Pancreatic duct not dilated. GALLBLADDER: Surgically absent. ADRENAL GLANDS: No significant masses or asymmetry. RIGHT KIDNEY AND URETER: No solid masses. No significant calcifications. No hydronephrosis or hyd roureter. LEFT KIDNEY AND URETER: No solid masses. No significant calcifications. No hydronephrosis or hydr oureter. AORTA AND VESSELS: No aneurysm. No dissection. Renal arteries, SMA, celiac without stenosis. RETROPERITONEUM: No retroperitoneal adenopathy, hemorrhage or masses. BOWEL AND PERITONEAL CAVITY: No masses or inflammatory changes. No free fluid or peritoneal masses. APPENDIX: Not identified. PELVIS: No mass. No free fluid. Normal bladder. ABDOMINAL WALL: No masses. No hernias. BONES: No significant or acute findings. OTHER: No other significant finding. IMPRESSION: There are no abdominal or pelvic metastases. No acute findings. TECHNICAL DOCUMENTATION: JOB ID: [id number] Quality ID # [id number]: Final reports with documentation of one or more dose reduction techniques (e.g., Au tomated exposure control, adjustment of the mA and/or kV according to patient size, use of iterative reconstruction technique) 2010 [employer]- All Rights Reserved Reading location - IP/workstation name: [email or web address]
--- NOTE | 2018-11-20 13:22 | RADIOLOGY REPORT (SQ) ---
EXAM DESCRIPTION: NM WHOLE BODY BONE SCAN COMPLETED DATE/TIME: 11/20/2018 12:50 pm REASON FOR STUDY: BREAST CANCER C50.012 MALIGNANT NEOPLASM OF NIPPLE AND AREOLA, LEFT FEMALE COMPARISON: Bone scan 06/09/2018 MR head RADIONUCLIDE AND DOSE: 20 millicuries Tc99m HDP. The route of agent administration: Intravenous. ADDITIONAL DRUGS AND DOSES: None. TECHNIQUE: Routine delayed images at 3 hours post radionuclide injection acquired of the bony skelet on including anterior and posterior whole-body projections and additional focused images as needed. LIMITATIONS: None. FINDINGS: BONES: There is increasing activity in the left frontal bone. No new areas of abnormal sk eletal uptake are seen. KIDNEYS: Symmetric excretion without obstruction. OTHER: No other significant finding. IMPRESSION: Further increased uptake in the left frontal bone. No new areas of abnormal uptake. COMMENT: Quality measure 147: Current bone scan is compared with any available plain radiographs, p rior bone scans, and CT/MRI. TECHNICAL DOCUMENTATION: JOB ID: [id number] [employer]- All Rights Reserved Reading location - IP/workstation name: [email or web address]
== END ==
LOC: RAD 09:27
PROVIDERS: ATTEND Internal Medicine
DX: C50.012 Malignant neoplasm of nipple and areola, left female breast (principal); Z90.12 Acquired absence of left breast and nipple
CPT/HCPCS: 82565; 70553; 78306; 71260; 74177; A9576; A9561; Q9969

== ENCOUNTER → 2019-02-26 | Outpatient (CLI) | payer MEDICARE, MEDICAID ==
--- NOTE | 2019-02-26 08:56 | RADIOLOGY REPORT (SQ) ---
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 Images reviewed with lung, soft tissue and bone windows. Reconstructed coronal and sagittal MPR and MIP images reviewed. All images stored on PACS. All CT scanners at this facility use dose modulation, iterative reconstruction, and/or weight based d osing when appropriate to reduce radiation dose to as low as reasonably achievable (ALARA). [facility]: Dose Right [facility]: CareDose [facility]: Dose Right [facility]: Teradose 4D [facility]: [employer] CONTRAST TYPE AND DOSE: 79 ml omnipaque 350 RENAL FUNCTION: Creatinine- 0.6 RADIATION DOSE: Total exam DLP: 978.53 mGy-cm LIMITATIONS: None. FINDINGS: LUNGS AND PLEURA: Stable linear areas of subsegmental atelectasis or scar in the middle a nd lower lobes. Small stable fatty density versus small diaphragmatic hernia superior to the medial aspect of the right hemidiaphragm, coronal image 53, series 601 and axial image 77, series 6. No pne umothorax. Stable minimal to very small right pleural effusion. The central airways are clear. HILAR AND MEDIASTINAL STRUCTURES: No significant interval changes. HEART AND VASCULAR STRUCTURES: No aneurysm or dissection. No central pulmonary emboli. No pericardi al effusion. HARDWARE: Right Lmeguq-H-Vpmt catheter, stable finding. UPPER ABDOMEN: Please see CT abdomen report. THYROID AND OTHER SOFT TISSUES: No masses. No adenopathy. BONES: The osseous structures are stable in appearance. OTHER: Prior left mastectomy. IMPRESSION: 1. No significant interval changes since the prior examination dated 11/20/2018. TECHNICAL DOCUMENTATION: JOB ID: [id number] Quality ID # 436: Final reports with documentation of one or more dose reduction techniques (e.g., Au tomated exposure control, adjustment of the mA and/or kV according to patient size, use of iterative reconstruction technique) 2010 [employer]- All Rights Reserved Reading location - IP/workstation name: [email or web address]
--- NOTE | 2019-02-26 09:59 | RADIOLOGY REPORT (SQ) ---
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 No oral contrast. Images reviewed with lung, soft tissue, and bone windows. Reconstructed coronal and sagittal MPR images reviewed. Delayed images for evaluation of the urinary system also acquired. All images stored on PACS. All CT scanners at this facility use dose modulation, iterative reconstruction, and/or weight based d osing when appropriate to reduce radiation dose to as low as reasonably achievable (ALARA). [facility]: Dose Right [facility]: CareDose [facility]: Dose Right [facility]: Teradose 4D [facility]: [employer] CONTRAST TYPE AND DOSE: contrast/concentration: Isovue 350.00 mg/ml; Total Contrast Delivered: 79.0 ml; Total Saline Delivered: 68.0 ml RENAL FUNCTION: Creatinine -0.6 RADIATION DOSE: CT Rad equipment meets quality standard of care and radiation dose reduction techniq ues were employed. CTDIvol: 5.3 - 8.0 mGy. DLP: 979 mGy-cm.. LIMITATIONS: None. FINDINGS: LOWER CHEST: Please see CT chest report. LIVER: Mery's lobe of the right hepatic lobe, normal anatomic variant. No masses. No dilated duct s. The hepatic and portal veins are patent. SPLEEN: Normal size. No focal lesions. PANCREAS: No masses. No significant calcifications. No adjacent inflammation or peripancreatic fluid collections. Pancreatic duct not dilated. GALLBLADDER: Prior cholecystectomy. ADRENAL GLANDS: Stable mild nodular thickening of the left adrenal gland. The right adrenal gland i s unremarkable in appearance. RIGHT KIDNEY AND URETER: Stable septated, well-circumscribed heterogenous appearing hypoattenuated r ight renal lesion with CT numbers slightly above water range. No hydronephrosis or hydroureter. LEFT KIDNEY AND URETER: No solid masses. No significant calcifications. No hydronephrosis or hydr oureter. AORTA AND VESSELS: Mild atherosclerotic changes involving the abdominal aorta and branch vessels. N o aneurysm. No dissection. Renal arteries, SMA, celiac without stenosis. RETROPERITONEUM: No retroperitoneal adenopathy, hemorrhage or masses. BOWEL AND PERITONEAL CAVITY: No masses or inflammatory changes. No free fluid or peritoneal masses. APPENDIX: Normal. PELVIS: No mass. No free fluid. Normal bladder. ABDOMINAL WALL: No masses. No hernias. BONES: The osseous structures are stable in appearance. The 1 cm focus of bony sclerosis in the rig ht L3 pedicle is stable. OTHER: Stable ill-defined soft tissue densities in the bilateral gluteal soft tissues maybe related to prior injury/trauma. IMPRESSION: 1. No significant interval changes since the prior examination dated 11/20/2018. 2. Stable slightly septated, well-circumscribed heterogenous appearing hypoattenuated right renal le adriane. Correlation with renal ultrasound examination suggested. TECHNICAL DOCUMENTATION: JOB ID: [id number] Quality ID # [id number]: Final reports with documentation of one or more dose reduction techniques (e.g., Au tomated exposure control, adjustment of the mA and/or kV according to patient size, use of iterative reconstruction technique) 2010 [employer]- All Rights Reserved Reading location - IP/workstation name: [email or web address]
--- NOTE | 2019-02-26 17:06 | RADIOLOGY REPORT (SQ) ---
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 The route of agent administration: Intravenous. ADDITIONAL DRUGS AND DOSES: None. TECHNIQUE: Routine delayed images at 3 hours post radionuclide injection acquired of the bony skelet on including anterior and posterior whole-body projections and additional focused images as needed. LIMITATIONS: None. FINDINGS: There is increased uptake over the left frontal bone, more prominent than on studies datin g back to 2016. This correlates with an area of sclerosis on brain MRI 11/20/2018 which most likely represents a bony metastatic lesion given a history of breast cancer. Remainder of the skeletal uptake is otherwise unremarkable. Minimal uptake at both knees and ankles likely related to osteoarthritis. Symmetric renal excretion. IMPRESSION: Persistent activity left frontal bone correlates with sclerosis on MRI brain 11/20/2018, worrisome for calvarial metastatic lesion COMMENT: Quality measure 147: Current bone scan is compared with any available plain radiographs, p rior bone scans, and CT/MRI. TECHNICAL DOCUMENTATION: JOB ID: [id number] [employer]- All Rights Reserved Reading location - IP/workstation name: [email or web address]
== END ==
LOC: RAD 07:46
PROVIDERS: ATTEND Physician Assistant Medical
DX: C50.012 Malignant neoplasm of nipple and areola, left female breast (principal); Z90.12 Acquired absence of left breast and nipple
CPT/HCPCS: 78306; 71260; 74177; A9561; Q9969

== ENCOUNTER → 2019-05-29 | Outpatient (CLI) | payer MEDICARE, MEDICAID ==
--- NOTE | 2019-05-29 12:25 | RADIOLOGY REPORT (SQ) ---
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 Images reviewed with lung, soft tissue and bone windows. Reconstructed coronal a nd sagittal MPR images reviewed. All images stored on PACS. CT scan of the abdomen and pelvis performed with intravenous and without oral contrastusing helical s klaudia technique with dynamic intravenous contrast injection. Images reviewed with lung, soft tissu e and bone windows. Reconstructed coronal and sagittal MPR images reviewed. Delayed images for eval uation of the urinary system also acquired and evaluated. All images stored on PACS. All CT scanners at this facility use dose modulation, iterative reconstruction, and/or weight based d osing when appropriate to reduce radiation dose to as low as reasonably achievable (ALARA). [facility]: Dose Right [facility]: CareDose [facility]: Dose Right [facility]: Teradose 4D [facility]: WinDensity RADIATION DOSE: CT Rad equipment meets quality standard of care and radiation dose reduction techniq ues were employed. CTDIvol: 5.0 - 7.5 mGy. DLP: 908 mGy-cm. . LIMITATIONS: None. FINDINGS: CHEST: LUNGS AND PLEURA: Minimal bibasilar atelectasis. No worrisome pulmonary nodules. No pleural effusio n. No pneumothorax. Airways are patent. HILAR AND MEDIASTINAL STRUCTURES: No identified masses or abnormal nodes. Small hiatal hernia HEART AND VASCULAR STRUCTURES: No aneurysm or dissection. No central pulmonary emboli. No pericardi al effusion. HARDWARE: Right permanent central line tip in the right atrium THYROID AND OTHER SOFT TISSUES: Post left mastectomy BONES: No significant finding. OTHER: No other significant finding. ABDOMEN AND PELVIS: LIVER: Normal size. No masses. No dilated ducts. SPLEEN: Normal size. No focal lesions. PANCREAS: No masses. No significant calcifications. No adjacent inflammation or peripancreatic fluid collections. Pancreatic duct not dilated. GALLBLADDER: Surgically absent ADRENAL GLANDS: No significant masses or asymmetry. RIGHT KIDNEY AND URETER: No solid masses. Right lower pole 1.6 cm cortical cyst. No significant bobbi cification. No hydronephrosis or hydroureter. LEFT KIDNEY AND URETER: No solid masses. No significant calcification. No hydronephrosis or hydrouret er. AORTA AND VESSELS: No aneurysm. No dissection. Renal arteries, SMA, celiac without stenosis. RETROPERITONEUM: No retroperitoneal adenopathy, hemorrhage or masses. BOWEL AND PERITONEAL CAVITY: No masses or inflammatory changes. No free fluid or peritoneal masses. APPENDIX: Normal on coronal image 28 ABDOMINAL WALL: No masses. No hernias. PELVIS: No mass or free fluid. Normal bladder. Normal size female pelvic organs BONES: No significant or acute findings. OTHER: No other significant finding. IMPRESSION: No CT evidence of metastatic disease over the chest abdomen or pelvis TECHNICAL DOCUMENTATION: JOB ID: [id number] Quality ID # 436: Final reports with documentation of one or more dose reduction techniques (e.g., Au tomated exposure control, adjustment of the mA and/or kV according to patient size, use of iterative reconstruction technique) 2010 [employer]- All Rights Reserved COMPARISON: None. Whole-body bone 02/26/2019 CT abdomen pelvis 02/26/2019, 11/20/2018 CONTRAST TYPE AND DOSE: contrast/concentration: Isovue 350.00 mg/ml; Total Contrast Delivered: 74.0 ml; Total Saline Delivered: 67.0 ml Reading location - IP/workstation name: [email or web address]
--- NOTE | 2019-05-29 12:25 | RADIOLOGY REPORT (SQ) ---
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 Images reviewed with lung, soft tissue and bone windows. Reconstructed coronal a nd sagittal MPR images reviewed. All images stored on PACS. CT scan of the abdomen and pelvis performed with intravenous and without oral contrastusing helical s klaudia technique with dynamic intravenous contrast injection. Images reviewed with lung, soft tissu e and bone windows. Reconstructed coronal and sagittal MPR images reviewed. Delayed images for eval uation of the urinary system also acquired and evaluated. All images stored on PACS. All CT scanners at this facility use dose modulation, iterative reconstruction, and/or weight based d osing when appropriate to reduce radiation dose to as low as reasonably achievable (ALARA). [facility]: Dose Right [facility]: CareDose [facility]: Dose Right [facility]: Teradose 4D [facility]: [employer] RADIATION DOSE: CT Rad equipment meets quality standard of care and radiation dose reduction techniq ues were employed. CTDIvol: 5.0 - 7.5 mGy. DLP: 908 mGy-cm. . LIMITATIONS: None. FINDINGS: CHEST: LUNGS AND PLEURA: Minimal bibasilar atelectasis. No worrisome pulmonary nodules. No pleural effusio n. No pneumothorax. Airways are patent. HILAR AND MEDIASTINAL STRUCTURES: No identified masses or abnormal nodes. Small hiatal hernia HEART AND VASCULAR STRUCTURES: No aneurysm or dissection. No central pulmonary emboli. No pericardi al effusion. HARDWARE: Right permanent central line tip in the right atrium THYROID AND OTHER SOFT TISSUES: Post left mastectomy BONES: No significant finding. OTHER: No other significant finding. ABDOMEN AND PELVIS: LIVER: Normal size. No masses. No dilated ducts. SPLEEN: Normal size. No focal lesions. PANCREAS: No masses. No significant calcifications. No adjacent inflammation or peripancreatic fluid collections. Pancreatic duct not dilated. GALLBLADDER: Surgically absent ADRENAL GLANDS: No significant masses or asymmetry. RIGHT KIDNEY AND URETER: No solid masses. Right lower pole 1.6 cm cortical cyst. No significant bobbi cification. No hydronephrosis or hydroureter. LEFT KIDNEY AND URETER: No solid masses. No significant calcification. No hydronephrosis or hydrouret er. AORTA AND VESSELS: No aneurysm. No dissection. Renal arteries, SMA, celiac without stenosis. RETROPERITONEUM: No retroperitoneal adenopathy, hemorrhage or masses. BOWEL AND PERITONEAL CAVITY: No masses or inflammatory changes. No free fluid or peritoneal masses. APPENDIX: Normal on coronal image 28 ABDOMINAL WALL: No masses. No hernias. PELVIS: No mass or free fluid. Normal bladder. Normal size female pelvic organs BONES: No significant or acute findings. OTHER: No other significant finding. IMPRESSION: No CT evidence of metastatic disease over the chest abdomen or pelvis TECHNICAL DOCUMENTATION: JOB ID: [id number] Quality ID # 436: Final reports with documentation of one or more dose reduction techniques (e.g., Au tomated exposure control, adjustment of the mA and/or kV according to patient size, use of iterative reconstruction technique) 2010 [employer]- All Rights Reserved COMPARISON: None. Whole-body bone 02/26/2019 CT abdomen pelvis 02/26/2019, 11/20/2018 CONTRAST TYPE AND DOSE: contrast/concentration: Isovue 350.00 mg/ml; Total Contrast Delivered: 74.0 ml; Total Saline Delivered: 67.0 ml Reading location - IP/workstation name: [email or web address] [email or web address]
--- NOTE | 2019-05-29 12:57 | RADIOLOGY REPORT (SQ) ---
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 The route of agent administration: Intravenous. ADDITIONAL DRUGS AND DOSES: None. TECHNIQUE: Routine delayed images at 3 hours post radionuclide injection acquired of the bony skelet on including anterior and posterior whole-body projections and additional focused images as needed. LIMITATIONS: None. FINDINGS: BONES: Persistent markedly increased uptake in the left frontal bone, unchanged. No other abnormal skeletal uptake is present KIDNEYS: Symmetric excretion without obstruction. OTHER: No other significant finding. IMPRESSION: Increased uptake left frontal bone is similar compared to 02/26/2019. Otherwise unremarkable study COMMENT: Quality measure 147: Current bone scan is compared with any available plain radiographs, p rior bone scans, and CT/MRI. TECHNICAL DOCUMENTATION: JOB ID: [id number] [employer]- All Rights Reserved Reading location - IP/workstation name: [email or web address]
== END ==
LOC: RAD 10:06
PROVIDERS: ATTEND Internal Medicine
DX: C50.012 Malignant neoplasm of nipple and areola, left female breast (principal)
CPT/HCPCS: 78306; 71260; 74177; A9561; Q9969

== ENCOUNTER → 2019-09-12 | Outpatient (CLI) | payer MEDICARE, MEDICAID ==
--- NOTE | 2019-09-12 09:00 | RADIOLOGY REPORT (SQ) ---
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 Reconstructed coronal and sagittal MPR images reviewed. All images stored on PACS. All CT scanners at this facility use dose modulation, iterative reconstruction, and/or weight based d osing when appropriate to reduce radiation dose to as low as reasonably achievable (ALARA). [facility]: Dose Right [facility]: CareDose [facility]: Dose Right [facility]: Teradose 4D [facility]: [employer] CONTRAST TYPE AND DOSE: 83 mL Omnipaque 350 RENAL FUNCTION: Creatinine 0.8 RADIATION DOSE: . LIMITATIONS: None. FINDINGS: SKULL BASE: Intact. MAJOR SALIVARY GLANDS: No solid or cystic masses. No inflammatory changes. LYMPHADENOPATHY: There is an necrotic enlarged lymph node in the left supraclavicular region. This m easures 2.0 x 2.0 cm in size. There is a 2nd 1 cm node in the left supraclavicular region. There is a 1.8 cm node just posterior to the left jugular vein at the level of the thyroid gland. This is in creased in size since prior study. MUCOSAL MASSES OR ASYMMETRY: No mucosal masses or asymmetry. LARYNX/CORDS: No abnormal findings. VASCULAR STRUCTURES: The major vessels are patent. LUNG APICES: Clear. BONES: Intact. THYROID: Normal size. No masses. PARANASAL SINUSES: There is dense opacification of the right maxillary sinus. There are retention cy st or polyps in the lateral aspect of the sphenoid sinus. OTHER: No other significant finding. IMPRESSION: 3 enlarged lymph nodes in the left supraclavicular region. These have increased in size when compared to prior study. Metastatic disease is most likely. Dense opacification of the right maxillary sinus new from prior study. Small retention cyst or polyp s in the sphenoid sinus. TECHNICAL DOCUMENTATION: JOB ID: [id number] Quality ID # 436: Final reports with documentation of one or more dose reduction techniques (e.g., Au tomated exposure control, adjustment of the mA and/or kV according to patient size, use of iterative reconstruction technique) 2010 [employer]- All Rights Reserved Reading location - IP/workstation name: [email or web address]
--- NOTE | 2019-09-12 09:10 | RADIOLOGY REPORT (SQ) ---
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 Images reviewed with lung, soft tissue and bone windows. Reconstructed coronal a nd sagittal MPR images reviewed. All images stored on PACS. All CT scanners at this facility use dose modulation, iterative reconstruction, and/or weight based d osing when appropriate to reduce radiation dose to as low as reasonably achievable (ALARA). [facility]: Dose Right [facility]: CareDose [facility]: Dose Right [facility]: [employer] 4D [facility]: [employer] RADIATION DOSE: . LIMITATIONS: None. FINDINGS: AXILLAE: No adenopathy. CHEST WALL: No masses. No subcutaneous air. Prior left mastectomy. LUNGS: Scarring in the right lung base. No consolidation. No suspicious pulmonary nodules. PLEURA: Mild bilateral pleural thickening. Right greater than left. THYROID: No masses or significant asymmetry. HILAR AND MEDIASTINAL STRUCTURES: No identified masses or abnormal nodes. AORTA AND GREAT VESSELS: No aneurysm. No dissection. PULMONARY ARTERIES: No identified pulmonary emboli. Study not optimized for the pulmonary arteries. HEART: No pericardial effusion. HARDWARE AND LIFELINES: Hdxifs-D-[id number] is in place. BONES: Unremarkable. OTHER: Small lymph node just posterior to the left jugular vein is again noted as described on CT of the neck. IMPRESSION: No evidence of metastatic disease in the chest. COMPARISON: None. RADIATION DOSE: mGy. TECHNIQUE: CT scan of the abdomen and pelvis performed with intravenous and oral contrast using maxine bobbi scanning technique with dynamic intravenous contrast injection. Images reviewed with lung, soft tissue and bone windows. Reconstructed coronal and sagittal MPR images reviewed. Delayed images for evaluation of the urinary system also acquired and evaluated. All images stored on PACS. All CT scanners at this facility use dose modulation, iterative reconstruction, and/or weight based d osing when appropriate to reduce radiation dose to as low as reasonably achievable (ALARA). [facility]: Dose Right [facility]: SureCare [facility]: Dose Right [facility]: TerTugendee 4D [facility]: [employer] FINDINGS: LIVER: Mild heterogeneous attenuation of the inferior right lobe of liver. This is homoge neous on delayed images. No discrete lesions. SPLEEN: Normal size. No focal lesions. PANCREAS: No masses. No significant calcifications. No adjacent inflammation or peripancreatic flui d collections. Pancreatic duct not dilated. GALLBLADDER: Surgically absent. ADRENAL GLANDS: Bilateral adrenal fullness stable in appearance most likely hyperplasia. RIGHT KIDNEY AND URETER: Small cyst off the inferior pole. No solid lesions. LEFT KIDNEY AND URETER: No solid masses. No significant calcification. No hydronephrosis or hydrouret er. AORTA AND VESSELS: No aneurysm. No dissection. Renal arteries, SMA, celiac without stenosis. RETROPERITONEUM: No retroperitoneal adenopathy, hemorrhage or masses. LARGE AND SMALL BOWEL: No dilatation. No masses. No wall thickening. APPENDIX: Not visualized. ABDOMINAL WALL: No hernia or masses. PERITONEAL CAVITY: No free air. No free fluid. No peritoneal implants or masses. PELVIS: No mass or free fluid. Normal bladder. BONES: Stable sclerotic lesion involving the right posterolateral aspect of the L3 vertebral body. I s show no abnormal uptake on whole-body bone scan done in May. OTHER: No other significant finding. IMPRESSION: Stable CT the abdomen and pelvis. Single sclerotic lesion in the L3 vertebral body on t he right is unchanged. No soft tissue metastasis. TECHNICAL DOCUMENTATION: JOB ID: [id number] Quality ID # 436: Final reports with documentation of one or more dose reduction techniques (e.g., Au tomated exposure control, adjustment of the mA and/or kV according to patient size, use of iterative reconstruction technique) 2010 [employer]- All Rights Reserved Reading location - IP/workstation name: [email or web address]
--- NOTE | 2019-09-12 09:10 | RADIOLOGY REPORT (SQ) ---
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 Images reviewed with lung, soft tissue and bone windows. Reconstructed coronal a nd sagittal MPR images reviewed. All images stored on PACS. All CT scanners at this facility use dose modulation, iterative reconstruction, and/or weight based d osing when appropriate to reduce radiation dose to as low as reasonably achievable (ALARA). [facility]: Dose Right [facility]: CareDose [facility]: Dose Right [facility]: [employer] 4D [facility]: [employer] RADIATION DOSE: . LIMITATIONS: None. FINDINGS: AXILLAE: No adenopathy. CHEST WALL: No masses. No subcutaneous air. Prior left mastectomy. LUNGS: Scarring in the right lung base. No consolidation. No suspicious pulmonary nodules. PLEURA: Mild bilateral pleural thickening. Right greater than left. THYROID: No masses or significant asymmetry. HILAR AND MEDIASTINAL STRUCTURES: No identified masses or abnormal nodes. AORTA AND GREAT VESSELS: No aneurysm. No dissection. PULMONARY ARTERIES: No identified pulmonary emboli. Study not optimized for the pulmonary arteries. HEART: No pericardial effusion. HARDWARE AND LIFELINES: [id number] is in place. BONES: Unremarkable. OTHER: Small lymph node just posterior to the left jugular vein is again noted as described on CT of the neck. IMPRESSION: No evidence of metastatic disease in the chest. COMPARISON: None. RADIATION DOSE: mGy. TECHNIQUE: CT scan of the abdomen and pelvis performed with intravenous and oral contrast using maxine bobbi scanning technique with dynamic intravenous contrast injection. Images reviewed with lung, soft tissue and bone windows. Reconstructed coronal and sagittal MPR images reviewed. Delayed images for evaluation of the urinary system also acquired and evaluated. All images stored on PACS. All CT scanners at this facility use dose modulation, iterative reconstruction, and/or weight based d osing when appropriate to reduce radiation dose to as low as reasonably achievable (ALARA). [facility]: Dose Right [facility]: SureCare [facility]: Dose Right [facility]: TerLANDBAYe 4D [facility]: [employer] FINDINGS: LIVER: Mild heterogeneous attenuation of the inferior right lobe of liver. This is homoge neous on delayed images. No discrete lesions. SPLEEN: Normal size. No focal lesions. PANCREAS: No masses. No significant calcifications. No adjacent inflammation or peripancreatic flui d collections. Pancreatic duct not dilated. GALLBLADDER: Surgically absent. ADRENAL GLANDS: Bilateral adrenal fullness stable in appearance most likely hyperplasia. RIGHT KIDNEY AND URETER: Small cyst off the inferior pole. No solid lesions. LEFT KIDNEY AND URETER: No solid masses. No significant calcification. No hydronephrosis or hydrouret er. AORTA AND VESSELS: No aneurysm. No dissection. Renal arteries, SMA, celiac without stenosis. RETROPERITONEUM: No retroperitoneal adenopathy, hemorrhage or masses. LARGE AND SMALL BOWEL: No dilatation. No masses. No wall thickening. APPENDIX: Not visualized. ABDOMINAL WALL: No hernia or masses. PERITONEAL CAVITY: No free air. No free fluid. No peritoneal implants or masses. PELVIS: No mass or free fluid. Normal bladder. BONES: Stable sclerotic lesion involving the right posterolateral aspect of the L3 vertebral body. I s show no abnormal uptake on whole-body bone scan done in May. OTHER: No other significant finding. IMPRESSION: Stable CT the abdomen and pelvis. Single sclerotic lesion in the L3 vertebral body on t he right is unchanged. No soft tissue metastasis. TECHNICAL DOCUMENTATION: JOB ID: [id number] Quality ID # 436: Final reports with documentation of one or more dose reduction techniques (e.g., Au tomated exposure control, adjustment of the mA and/or kV according to patient size, use of iterative reconstruction technique) 2010 [employer]- All Rights Reserved Reading location - IP/workstation name: [email or web address]
--- NOTE | 2019-09-12 13:15 | RADIOLOGY REPORT (SQ) ---
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 RADIONUCLIDE AND DOSE: 21.7 millicuries Tc99m MDP. The route of agent administration: Intravenous. ADDITIONAL DRUGS AND DOSES: None. TECHNIQUE: Routine delayed images at 3 hour post radionuclide injection acquired of the bony skeleto n including anterior and posterior whole-body projections and additional focused images as needed. LIMITATIONS: None. FINDINGS: BONES: Normal visualization without areas of photopenia or increased bony uptake of radiop harmaceutical. KIDNEYS: There appears to be delayed excretion on the left. Although review of CT done earlier today reveals normal enhancement and excretion. OTHER: No other significant finding. IMPRESSION: No evidence of metastatic disease by bone scan. COMMENT: Quality measure 147: Current bone scan is compared with any available plain radiographs, p rior bone scans, and CT/MRI. TECHNICAL DOCUMENTATION: JOB ID: [id number] [employer]- All Rights Reserved Reading location - IP/workstation name: [email or web address]
== END ==
LOC: RAD 08:03
PROVIDERS: ATTEND Internal Medicine
DX: C50.012 Malignant neoplasm of nipple and areola, left female breast (principal); R59.0 Localized enlarged lymph nodes
CPT/HCPCS: 82565; 78306; 70491; 71260; 74177; A9561; Q9969

== ENCOUNTER 2019-10-26 08:10 | Inpatient (IN) | payer MEDICARE, MEDICAID ==
[2019-10-26] MEDS ORDERED: ONDANSETRON HCL INJ/PF 4 MG/2 ML SDV IV ONE (08:23)
[2019-10-26] MEDS ORDERED: THIAMINE HCL INJ 200 MG/2 ML VIAL IV ONE (08:24)
--- NOTE | 2019-10-26 08:43 | ER Document Report ---
Entered by MELA LOVE SCRIBE 10/26/19 0824 Acting as scribe for:LEAH JENKINS MD ED General - General Chief Complaint: Blood Pressure Problem Stated Complaint: BLOOD PRESSURE PROBLEMS Mode of Arrival: Medic Information source: Patient, [facility] Records Notes: This 54-year-old female patient with a history of breast cancer that presents to the emergency department today with complaints nausea and vomiting for last several days. Patient states she has been unable to keep anything down but she "has been trying to stay on top of her fluids". Patient states that "everything she puts in her mouth either comes up as vomit or out as shit". Patient reports global weakness without focal deficits. When reviewing the external pharmacy database records it appears that the patient is on chemotherapy. Patient filled a prescription for x10 days worth of Faslodex a little over 2 weeks ago. Family member at bedside mentions that the patient was "supposed to see her oncology doctor but she has not seen him yet", mentioning that she does not want to do chemotherapy any longer. Pertinent PMHx/PSHx: Breast cancer, currently getting chemotherapy - additional PMHx/PSHx not pertinent to this visit as recorded. PCP: Melanie Naranjo Oncologist: Myles Dyson TRAVEL OUTSIDE OF THE [place] IN LAST 30 DAYS: No - Related Data Allergies/Adverse Reactions: No Known Allergies Allergy (Verified 08/23/18 10:55) Past Medical History - General Information source: Patient, [facility] Records - Social History Smoking Status: Current Every Day Smoker Cigarette use (# per day): Yes Frequency of alcohol use: None Drug Abuse: None Family History: None, Reviewed & Not Pertinent Pulmonary Medical History: Reports: Hx Bronchitis Malignancy Medical History: Reports: Hx Breast Cancer Musculoskeletal Medical History: Reports Hx Arthritis - RA Past Surgical History: Reports: Hx Mastectomy - left - Immunizations Hx Diphtheria, Pertussis, Tetanus Vaccination: No - Does not recall last tetanus immunization. Review of Systems - Review of Systems Constitutional: See HPI, Weakness EENT: No symptoms reported Cardiovascular: No symptoms reported Respiratory: No symptoms reported Gastrointestinal: See HPI, Diarrhea, Nausea, Vomiting Genitourinary: No symptoms reported Female Genitourinary: No symptoms reported Musculoskeletal: No symptoms reported Skin: No symptoms reported Hematologic/Lymphatic: No symptoms reported Neurological/Psychological: No symptoms reported -: Yes All other systems reviewed and negative Physical Exam - Vital signs Vitals: Resp 26 H 10/26/19 08:17 - Notes Notes: Physical Exam: General: Alert, appears chronically ill, dehydrated. HEENT: Normocephalic. Atraumatic. PERRL. Extraocular movements intact. Oropharynx clear. Very dry oral mucosa. Neck: Supple. Non-tender. Respiratory: Mild respiratory distress. Tachypneic, rhonchi with forced cough. Port in right upper chest. Cardiovascular: Tachycardic, regular rhythm. Abdominal: Mild diffuse abdominal tenderness with palpation. No distension. Normal Bowel Sounds. Back: No gross abnormalities. Extremities: Moves all four extremities. Upper extremities: Normal inspection. Normal ROM. Lower extremities: Normal inspection. No edema. Normal ROM. Neurological: Normal cognition. AAOx4. Normal speech. Psychological: Appears depressed Skin: Cool to the touch. Dry. Normal color. Course - Vital Signs Vital signs: Temp Pulse Resp BP Pulse Ox 100.4 F 124 H 27 H 83/40 L 95 10/26/19 14:00 10/26/19 14:00 10/26/19 15:48 10/26/19 15:48 10/26/19 14:00 - Laboratory Result Diagrams: 10/26/19 08:20 10/26/19 08:20 Laboratory results interpreted by me: 10/26/19 10/26/19 10/26/19 08:20 08:20 08:20 RBC 3.46 L MCV 104 H MCH 35.4 H RDW 17.6 H Plt Count 23 L* PT Sodium 136.7 L Carbon Dioxide 13 L Anion Gap 22 H BUN 45 H Creatinine 2.40 H Est GFR ( Amer) 25 L Est GFR (MDRD) Non-Af 21 L Glucose 145 H Lactic Acid (Sepsis) 8.2 H Calcium 8.2 L Magnesium 2.7 H Total Bilirubin 3.7 H Direct Bilirubin 2.2 H AST 364 H Creatine Kinase 160 H Urine Protein Urine Blood Urine Bilirubin Urine Urobilinogen 10/26/19 10/26/19 08:20 08:57 RBC MCV MCH RDW Plt Count PT 17.3 H Sodium Carbon Dioxide Anion Gap BUN Creatinine Est GFR ( Amer) Est GFR (MDRD) Non-Af Glucose Lactic Acid (Sepsis) Calcium Magnesium Total Bilirubin Direct Bilirubin AST Creatine Kinase Urine Protein 30 H Urine Blood SMALL H Urine Bilirubin SMALL H Urine Urobilinogen 4.0 H - EKG Interpretation by Me EKG shows normal: Sinus rhythm, Pope, Intervals. abnormal: QRS Complexes - Abnormal R progression, ST-T Waves - Nonspecific inferior T abnormalities Rate: Tachycardia - 114 - Consults Dr. Álvarez Time consulted: 09:45 Consulted provider: will come to ER Critical Care Note - Critical Care Note Total time excluding time spent on procedures (mins): 45 Discharge - Discharge Clinical Impression: Nausea, vomiting and diarrhea, Dehydration, Sepsis associated hypotension, Th rombocytopenia, Elevated troponin Acute renal failure Qualifiers: Acute renal failure type: unspecified Qualified Code(s): N17.9 - Acute kidney failure, unspecified Condition: Fair Disposition: ADMITTED INPATIENT Admitting Provider: Preeti (Acquisition Advisor) Unit Admitted: ICU Scribe Attestation: 10/26/19 09:49 I personally performed the services described in the documentation, reviewed and edited the documentation which was dictated to the scribe in my presence, and it accurately records my words and actions. I personally performed the services described in the documentation, reviewed and edited the documentation which was dictated to the scribe in my presence, and it accurately records my words and actions.
[2019-10-26 08:53] LABS: HEMOGLOBIN 12.2 g/dL (12.0-15.5); MEAN CORPUSCULAR HEMOGLOBIN 35.4 pg (27.0-33.4); MEAN CORPUSCULAR VOLUME 104 fl (80-97); RED BLOOD COUNT 3.46 10^6/uL (3.72-5.28); RED CELL DISTRIBUTION WIDTH 17.6 % (11.5-14.0); WHITE BLOOD COUNT 7.4 10^3/uL (4.0-10.5)
[2019-10-26 09:09] LABS: ALBUMIN 3.6 g/dL (3.5-5.0); ALKALINE PHOSPHATASE 92 U/L (38-126); ASPARTATE AMINO TRANSFERASE 364 U/L (14-36); BILIRUBIN,DIRECT 2.2 mg/dL (0.0-0.4); BILIRUBIN,TOTAL 3.7 mg/dL (0.2-1.3); BLOOD UREA NITROGEN 45 mg/dL (7-20); CALCIUM 8.2 mg/dL (8.4-10.2); CREATINE KINASE 160 U/L (30-135); GLUCOSE 145 mg/dL (75-110)
[2019-10-26 09:14] LABS: CARBON DIOXIDE 13 mmol/L (22-30); CHLORIDE 102 mmol/L (98-107)
[2019-10-26] MEDS ORDERED: RINGERS SOLUTION,LACTATED 1,000 ML IV ONE (09:16)
[2019-10-26] MEDS ORDERED: DEXTROSE 5%-LACTATED RINGERS 1,000 ML IV ONE (09:16)
[2019-10-26 09:20] LABS: ANION GAP 22 (5-19)
[2019-10-26 09:22] LABS: ABSOLUTE MONOCYTES # (MANUAL) 0.5 10^3/uL (0.1-1.4); BAND NEUTROPHILS % (MANUAL) 3 % (3-5); EOSINOPHILS % (MANUAL) 0 % (0-6); LYMPHOCYTES % (MANUAL) 17 % (13-45); MONOCYTES % (MANUAL) 7 % (3-13); SEGMENTED NEUTROPHILS % (MAN) 72 % (42-78); TOTAL CELLS COUNTED 100
[2019-10-26 09:23] LABS: ABSOLUTE LYMPHOCYTES# (MANUAL) 1.3 10^3/uL (0.5-4.7); BASOPHILS % (MANUAL) 0 % (0-2)
[2019-10-26 09:28] LABS: POLYCHROMASIA 1+
[2019-10-26 09:29] LABS: ANISOCYTOSIS 1+; BURR CELLS SLIGHT; HOWELL-JOLLY BODIES PRESENT; OVALOCYTES 1+; PLATELET COMMENT DECREASED; POIKILOCYTOSIS 1+; SCHISTOCYTES SLIGHT; TEAR DROP CELLS SLIGHT
[2019-10-26 09:31] LABS: NUCLEATED RED BLOOD CELLS 6 /100 WBC (0); PLATELET COUNT 23 10^3/uL (150-450)
[2019-10-26 09:48] LABS: APPEARANCE,URINE CLOUDY; BILIRUBIN,URINE SMALL (NEGATIVE); COLOR,URINE AMBER; GLUCOSE, URINE NEGATIVE (NEGATIVE); KETONES,URINE NEGATIVE (NEGATIVE); LEUKOCYTE ESTERASE,URINE NEGATIVE (NEGATIVE); NITRITE,URINE NEGATIVE (NEGATIVE); PROTEIN,URINE 30 mg/dL (NEGATIVE); URINE SPECIFIC GRAVITY 1.016
[2019-10-26] MEDS: LEVOFLOXACIN 750 MG/D5W RTU 750 MG/150 ML RTUPB IV ONE ×2 (09:52→09:56)
[2019-10-26] MEDS ORDERED: CEFEPIME 1 GM/D5W RTU 1 GM/50 ML RTUPB IV ONE (09:55)
[2019-10-26] MEDS ORDERED: VANCOMYCIN HCL INJ 1000 MG VIAL IV ONE (09:56)
--- NOTE | 2019-10-26 10:01 | RADIOLOGY REPORT (SQ) ---
EXAM DESCRIPTION: CHEST SINGLE VIEW COMPLETED DATE/TIME: 10/26/2019 9:47 am REASON FOR STUDY: Tachypnea, hypoxia COMPARISON: 01/26/2012 EXAM PARAMETERS: NUMBER OF VIEWS: One view. TECHNIQUE: Single frontal radiographic view of the chest acquired. RADIATION DOSE: NA LIMITATIONS: None. FINDINGS: LUNGS AND PLEURA: No opacities, masses or pneumothorax. No pleural effusion. MEDIASTINUM AND HILAR STRUCTURES: No masses. Contour normal. HEART AND VASCULAR STRUCTURES: Heart normal in size. Aortic atherosclerosis. . BONES: No acute findings. HARDWARE: Right subclavian based chest port with catheter tip at cavoatrial junction. Surgical clips overlie mediastinum. OTHER: No other significant finding. IMPRESSION: NO ACUTE RADIOGRAPHIC FINDING IN THE CHEST. TECHNICAL DOCUMENTATION: JOB ID: [id number] .[employer]- All Rights Reserved Reading location - IP/workstation name: [email or web address]
[2019-10-26 10:14] LABS: FIBRINOGEN 471 mg/dL (209-497); PROTHROMBIN TIME 17.3 SEC (11.4-15.4)
[2019-10-26] MEDS ORDERED: DEXTROSE 5%-WATER 250 ML with NOREPINEPHRINE BITARTRATE 4 MG IV PRN ×2 (10:32)
[2019-10-26] MEDS ORDERED: VANCOMYCIN HCL 0 MG in DEXTROSE 5%-WATER 250 ML IV NR (10:45)
[2019-10-26] MEDS ORDERED: ALBUMIN HUMAN 12.5 GM/50 ML RTUINJ IV SCH (11:00)
[2019-10-26] MEDS ORDERED: AZITHROMYCIN 500 MG in DEXTROSE 5%-WATER 250 ML IV SCH ×2 (11:00→12:00)
[2019-10-26] MEDS ORDERED: WATER FOR INJECTION,STERILE 1,000 ML with SODIUM BICARBONATE 125 MEQ IV PRN ×2 (12:00)
[2019-10-26] MEDS ORDERED: MEROPENEM 1 GM in NORMAL SALINE 50 ML IV SCH (12:00)
[2019-10-26] MEDS ORDERED: NOREPINEPHRINE BITARTRATE INJ/PF 4 MG/4 ML SDV IV ONE (12:38)
[2019-10-26 12:43] LABS: ARTERIAL BLOOD H2CO3 0.56 mmol/L (1.05-1.35); ARTERIAL BLOOD HCO3 10.8 mmol/L (20-24); ARTERIAL BLOOD O2 SATURATION 95.2 % (94-98); ARTERIAL BLOOD PH 7.38 (7.35-7.45); ARTERIAL BLOOD PO2 74.7 mmHg (80-100); ARTERIAL BLOOD TOTAL CO2 11.4 mmol/L (21-25)
[2019-10-26 12:47] LABS: ARTERIAL BLOOD PCO2 18.6 mmHg (35-45)
[2019-10-26] MEDS ORDERED: MICAFUNGIN SODIUM 100 MG in NORMAL SALINE 100 ML IV SCH (13:00)
--- NOTE | 2019-10-26 13:02 | EKG REPORT ---
SEVERITY:- ABNORMAL ECG - SINUS TACHYCARDIA ABNRM R PROG, CONSIDER ASMI OR LEAD PLACEMENT NONSPECIFIC T ABNORMALITIES, INFERIOR LEADS : Confirmed by: Liat Delong MD 26-Oct-2019 13:00:44
[2019-10-26] MEDS ORDERED: FENTANYL CITRATE INJ/PF 100 MCG/2 ML AMPUL IV ONE ×2 (14:06→16:00)
[2019-10-26] MEDS ORDERED: PROPOFOL 1,000 MG/100 ML INFUS..BTL IV PRN (15:14)
[2019-10-26] MEDS ORDERED: FENTANYL CITRATE INJ/PF 100 MCG/2 ML AMPUL ONE ×2 (15:17→16:06)
[2019-10-26] MEDS ORDERED: KETAMINE HCL INJ 500 MG/10 ML VIAL ONE (15:17)
[2019-10-26] MEDS ORDERED: DEXMEDETOMIDINE IN 0.9 % NACL 400 MCG/100 ML RTUPB IV ONE (15:23)
[2019-10-26 15:51] VITALS: BP 83/40
[2019-10-26 15:58] LABS: INTERNATIONAL RATION (INR) 1.48; PROTHROMBIN TIME 18.1 SEC (11.4-15.4)
[2019-10-26 15:59] LABS: PARTIAL THROMBOPLASTIN TIME 26.1 SEC (23.5-35.8)
[2019-10-26] MEDS ORDERED: KETAMINE HCL INJ 500 MG/10 ML VIAL IV ONE (16:00)
[2019-10-26] MEDS ORDERED: SUCCINYLCHOLINE CHLORIDE INJ 200 MG/10 ML VIAL IV ONE (16:00)
[2019-10-26] MEDS ORDERED: DEXMEDETOMIDINE IN NS 400 MCG/100 ML RTUPB IV PRN (16:00)
[2019-10-26 16:13] LABS: PHOSPHORUS 7.4 mg/dL (2.5-4.5)
[2019-10-26] MEDS ORDERED: SODIUM BICARBONATE 8.4% INJ 50 MEQ/50 ML DISP.SYRIN ONE ×2 (16:15→18:17)
[2019-10-26] MEDS ORDERED: EPINEPHRINE INJ/PF 1 MG/1 ML AMPULE ONE (16:16)
[2019-10-26] MEDS ORDERED: DEXTROSE 50%-WATER 25 GM/50 ML DISP.SYRIN IV ONE (16:25)
[2019-10-26] MEDS ORDERED: EPINEPHRINE INJ 1 MG/10 ML DISP.SYRIN ONE ×2 (16:36→18:17)
--- NOTE | 2019-10-26 18:00 | CRITICAL CARE ADMISSION REPORT ---
HPI Date:: 10/26/19 Time:: 11:01 Reason for ICU Reason:: Severe Sepsis, dehydration with acute kidney injury, Lactic acidosis HPI: This 54-year-old female patient with a history of breast cancer that presents to the emergency department today with complaints nausea and vomiting for last several days. Patient states she has been unable to keep anything down but she "has been trying to stay on top of her fluids". Patient states that "everything she puts in her mouth either comes up as vomit or out as shit". Patient reports global weakness without focal deficits. When reviewing the external pharmacy database records it appears that the patient is on chemotherapy. Patient filled a prescription for x10 days worth of Faslodex a little over 2 weeks ago. Family member at bedside mentions that the patient was "supposed to see her oncology doctor but she has not seen him yet", mentioning that she does not want to do chemotherapy any longer. Pertinent PMHx/PSHx: Breast cancer, currently getting chemotherapy - additional PMHx/PSHx not pertinent to this visit as recorded. PCP: Melanie Naranjo Oncologist: Myles Dyson History obtained from:: Patient, family - Diagnosis/Plan (1) Sepsis with acute renal failure and septic shock Qualifiers: Sepsis type: sepsis due to unspecified organism Acute renal failure type: with acute renal cortical necrosis Qualified Code(s): A41.9 - Sepsis, unspecified organism; R65.21 - Severe sepsis with septic shock; N17.1 - Acute kidney failure with acute cortical necrosis Is this a current diagnosis for this admission?: Yes (2) Severe sepsis with acute organ dysfunction Is this a current diagnosis for this admission?: Yes (3) Lactic acidosis Is this a current diagnosis for this admission?: Yes (4) Acute kidney injury (nontraumatic) Is this a current diagnosis for this admission?: Yes (5) Hypovolemia due to dehydration Is this a current diagnosis for this admission?: Yes (6) Chemotherapy induced nausea and vomiting Is this a current diagnosis for this admission?: Yes (7) Stage 4 carcinoma of breast, ER+ Qualifiers: Laterality: left Qualified Code(s): C50.912 - Malignant neoplasm of unspecified site of left female breast; Z17.0 - Estrogen receptor positive status [ER+] Is this a current diagnosis for this admission?: Yes (8) Typhlitis Is this a current diagnosis for this admission?: Yes - . Plan Summary: Patient is to be admitted to the ICU. She has severe sepsis with lactic acidosis and shock. She requires Levophed. Broad spectrum antibiotics as well as antifungals given. Had a long lengthy discussion with her and her daughter, Binta, in the ED. The patient refused central line, intubation, resuscitation, and aggressive care. Given the extent of her cancer this would be a reasonable request. Due diligence I spoke to her cancer doctor, Dr. Dyson. He to confirmed both reasonableness and awareness. Discussed the mortality rate and she was agreeable to come to the ICU with limited goals of care. In repeat evaluation in the ICU patient was worsening with significant tachypnea. Levophed dosing was increased. Patient had increased work of breathing, diaphoresis, and impending doom,. She did not want aggressive care and again refused intubation. We talked about making her comfortable and easing her pain. Did request pain medication. Repeat examination of her abdomen shows significant tenderness in the right lower quadrant however given her instability we were unable to send her to CAT scan. At one point her systolic blood pressure dropped to 37 mmHg and she was worsening. I went and called her daughter who was aware. At that point we distinctly said to come to the hospital because her mother was not doing well. The daughter Binta wanted us to speak to other family members however at this point the patient's blood pressure began to be precipitously low and she was worsening. I went and talked with the patient after we increased the Levophed to obtain a somewhat better blood pressure. She rescinded her DNR status and agreed to intubation. Given the low blood pressure she was intubated with ketamine and s uccinylcholine after 100 mics of fentanyl. Her blood pressure a few minutes before intubation was 113/65. Her heart rate prior to intubation was in the 120s to 130s was given fentanyl for pain. At this point she was on 30 mics of Levophed. Anticipating that her blood pressure would drop more because of high sympathetic response related to her sepsis and infection we gave her 100 mg of ketamine to support her blood pressure which had started to lower prior to intubation. She had a successful intubation without complication. Because her blood pressure continued to be low and she was now on 40 mics of Levophed we quickly place a central line under ultrasound guidance given her low platelets. She did not have any excessive bleeding. Her tachypnea had worsened prior to the intubation which was why she was intubated in the first place. This continued after her neuromuscular blockade wore off. A critical care ultrasound of the chest was done to rule out pneumothorax and there were no evidence of pneumothorax with positive B-lines positive lung sliding and M-mode imaging showing a seashore sign. She had been on Precedex because of the tachycardia and for sedation. We did not want to use propofol because of the low blood pressure. Respiratory rate had been increasing and we gave her fentanyl. Was done in concern for her abdominal pain and we were concerned that the increased respiratory rate was a pain response. Sometime later she was noted to be bradycardic. She was pulseless and a CODE BLUE was called with full ACLS response. Precedex was discontinued at this point as well. She received received 2 rounds of ACLS and we called family in. Point we achieved a pulse and the family was quite upset because they felt that we had stopped resuscitating. When we let them know that she had a pulse in the blood pressure was acceptable and that stopping compressions with return of spontaneous circulation was the correct thing to do they were less angry. Patient could not sustain her pulse and quickly had another PEA arrest. Critical care ultrasound done prior to the arrest showed a distended right ventricle and right atrium with an IVC that was distended without respirophasic changes. Paradoxically the left ventricle was underfilled and is essentially empty. This raises the suspicion of acute pulmonary embolism. We discussed with the family the low platelet count and her extensive malignancy plus the chest compressions. The possibility of resuscitating her from this scenario would be impossible. To the intubation I had a discussion with the patient and we had in agreement that if she could not improve and became terminal that resuscitation both active ACLS and or sepsis should be discontinued. Patient had undergone multiple rounds of ACLS driven protocol with epinephrine. Epinephrine drip had been started as well. Femoral line was placed to assure blood pressure parameters during ACLS. Was maintained above 20 mmHg consistently except during pulse checks. Intermittently there would be a wide-complex bradycardia. At this point we considered hyperkalemia and she was given glucose and insulin. After multiple rounds of ACLS and persistent asystole we discussed the situation with the family and Paige was universal to discontinue the cardiac resuscitation. Was lack of electrical activity throughout the entire code process and so the cessation of the code was at 1644. In concern for pain he is reanimation I observed her for more than 5 minutes and declared her officially at 1650 hrs. car examiner was called the case was discussed and they did not require jurisdiction nor was there a need for autopsy. Cause of was acute cardiogenic shock from pulmonary embolism most likely brought on from malignancy in the face of sepsis with shock. Past Medical History Cardiac Medical History: Reports: Hypertension Denies: Coronary Artery Disease, Myocardial Infarction Pulmonary Medical History: Reports: Bronchitis Denies: Asthma, Chronic Obstructive Pulmonary Disease (COPD), Pneumonia Neurological Medical History: Denies: Seizures Malignancy Medical History: Reports: Breast Cancer - Stage IV ER+ GI Medical History: Reports: None Musculoskeltal Medical History: Reports: Arthritis - RA Psychiatric Medical History: Reports: None Hematology: Denies: Anemia Infectious Medical History: Denies: Clostridium Difficile, Methicillin-Resistant Staph Aureus, Vancomycin-Resistant Enterococci Past Surgical History Past Surgical History: Reports: Mastectomy - left, Other - Placement of mediport >6-12 months Social/Family History - Social History Lives with: Family Smoking Status: Current Every Day Smoker Frequency of Alcohol Use: None Hx Recreational Drug Use: No - Medication/Allergies Home Medications: Clonazepam [Klonopin] 1 mg PO Q8HP PRN 10/26/19 Exemestane [Aromasin] 25 mg PO DAILY 10/26/19 Oxycodone HCl [Oxy-Ir 5 mg Tablet] 5 mg PO Q4HP PRN 10/26/19 Oxycodone Myristate [Xtampza ER] 27 mg PO Q12HP PRN 10/26/19 Trazodone HCl [Desyrel] 150 mg PO QHS 10/26/19 Allergies/Adverse Reactions: No Known Allergies Allergy (Verified 08/23/18 10:55) Review of Systems Constitutional: PRESENT: as per HPI, anorexia, fatigue, weakness. ABSENT: fever(s) Nose, Mouth, and Throat: ABSENT: mouth pain, sore throat Cardiovascular: PRESENT: dyspnea on exertion. ABSENT: chest pain Respiratory: PRESENT: dyspnea. ABSENT: hemoptysis Gastrointestinal: PRESENT: as per HPI, abdominal pain, nausea, vomiting. ABSENT: coffee ground emesis, hematemesis, hematochezia Genitourinary: PRESENT: as per HPI. ABSENT: difficulty urinating Musculoskeletal: PRESENT: muscle weakness Integumentary: PRESENT: as per HPI, lesions, rash - at medicine patch sites on abdomen Neurological: PRESENT: as per HPI, weakness. ABSENT: abnormal movements, confusion, memory loss, syncope Psychiatric: PRESENT: anxiety Endocrine: ABSENT: as per HPI, cold intolerance, flushing, heat intolerance, menstrual abnormalities, polydipsia, polyphagia, polyuria, other Hematologic/Lymphatic: PRESENT: lymphadenopathy. ABSENT: easy bleeding, easy bruising Physical Exam Vital Signs: Temp Pulse Resp BP Pulse Ox 97.7 F 121 H 25 H 97/66 L 90 L 10/26/19 10:46 10/26/19 08:18 10/26/19 10:46 10/26/19 10:46 10/26/19 10:01 Intake & Output 10/25/19 10/26/19 10/27/19 06:59 06:59 06:59 Intake Total 1000 Balance 1000 Weight 68.039 kg Weight/Height Weight 68.039 kg Height 5 ft 2 in General appearance: PRESENT: cooperative, disheveled, mild distress, morbidly obese Exam: Chronically and very ill appearing 54-year-old female appears older than stated age in moderate respiratory and abdominal distress. She is awake alert oriented x3 fully conversant. Head exam: PRESENT: atraumatic, normocephalic Eye exam: PRESENT: conjunctiva pink, EOMI, PERRLA. ABSENT: conjunctival injection, conjunctiva pale, nystagmus, periorbital swelling, scleral icterus Ear exam: ABSENT: bleeding, normal external ear exam Mouth exam: PRESENT: dry mucosa, neck supple, tongue midline Teeth exam: PRESENT: dental caries, poor dentation Neck exam: PRESENT: lymphadenopathy. ABSENT: carotid bruit, JVD, meningismus, thyromegaly Respiratory exam: PRESENT: accessory muscle use, clear to auscultation jewel, retraction, tachypnea. ABSENT: unlabored Cardiovascular exam: PRESENT: +S1, +S2, tachycardia. ABSENT: systolic murmur Pulses: ABSENT: normal dorsalis pedis pul, +1 pedal pulses bilateral, +2 pedal pulses bilateral Vascular exam: ABSENT: normal capillary refill, pallor GI/Abdominal exam: PRESENT: diminished bowel sounds, guarding, hypoactive bowel sounds, tenderness - sightly, diffuse. ABSENT: ascites, distended, firm, hernia, rebound, rigid Rectal exam: PRESENT: deferred Gentrourinary exam: ABSENT: ecchymosis Extremities exam: ABSENT: tenderness Musculoskeletal exam: ABSENT: deformity, dislocation Neurological exam: PRESENT: alert, awake, oriented to person, oriented to place, oriented to time, oriented to situation, CN II-XII grossly intact. ABSENT: motor sensory deficit Psychiatric exam: PRESENT: anxious, appropriate affect Focused psych exam: PRESENT: restlessness. ABSENT: pressured speech, psychomotor agitation Skin exam: PRESENT: intact, mottled - at knees, pallor, petechiae - at abdomen medicine patch site. ABSENT: cyanosis, erythema, jaundice, urticaria, vesicles Tubes/Lines: ABSENT: Endotracheal Tube, Chest Tube, Central Line, Arterial Catheter, Dialysis catheter, Peg Tube, Nasogastic Tube, Other Laboratory/Radiographs Laboratory Results: 10/26/19 08:20 10/26/19 08:20 10/26/19 10/26/19 10/26/19 08:20 08:20 08:57 WBC 7.4 RBC 3.46 L Hgb 12.2 Hct 36.0 MCV 104 H MCH 35.4 H MCHC 34.0 RDW 17.6 H Plt Count 23 L* Seg Neutrophils % Not Reportable Sodium 136.7 L Potassium 4.0 Chloride 102 Carbon Dioxide 13 L Anion Gap 22 H BUN 45 H Creatinine 2.40 H Est GFR ( Amer) 25 L Glucose 145 H Calcium 8.2 L Magnesium 2.7 H Total Bilirubin 3.7 H AST 364 H Alkaline Phosphatase 92 Total Protein 7.0 Albumin 3.6 Urine Color RITA Urine Appearance CLOUDY Urine pH 5.0 Ur Specific [place] 1.016 Urine Protein 30 H Urine Glucose (UA) NEGATIVE Urine Ketones NEGATIVE Urine Blood SMALL H Urine Nitrite NEGATIVE Ur Leukocyte Esterase NEGATIVE Urine WBC (Auto) 7 Urine RBC (Auto) 2 10/26/19 10/26/19 08:20 08:20 Creatine Kinase 160 H Troponin I 0.521 Impressions: Chest X-Ray 10/26/19 09:13 IMPRESSION: NO ACUTE RADIOGRAPHIC FINDING IN THE CHEST. All labs, radiographs, diagnostic studies and EKGs were personally reviewed: Yes In addition, reports of radiographic and diagnostic studies were read: Yes Critical Time Critical Time (minutes): 180 -: The care of a critically ill patient is dynamic. This note represents a static moment in the admission process. orders and treatments may be given simultaneously and urgently, and time is not sales representative wire rope of the treatment process. This patient requires Critical Care secondary to life threatening organ or limb dysfunction. Without the need for Critical Care services, the patient is at risk for increased mortality and morbidity.
--- NOTE | 2019-10-26 18:16 | Operative Report ---
Bedside Procedure - History of Present Illness History of Present Illness: This 54-year-old female patient with a history of breast cancer that presents to the emergency department today with complaints nausea and vomiting for last several days. Patient states she has been unable to keep anything down but she "has been trying to stay on top of her fluids". Patient states that "everything she puts in her mouth either comes up as vomit or out as shit". Patient reports global weakness without focal deficits. Found to have severe sepsis she was admitted to ICU. Refused aggressive care and life support but became worse. She rescinded and agreed to full-resuscitation albeit time-limited trial. Procedure Procedure: Placement of right femoral arterial catheter Preprocedure diagnosis: Sepsis with shock, acute, cardiac arrest Postprocedure diagnosis: Same Surgeon: Preeti Estimated blood loss 10 cc Complications: None She was identified second ongoing critical care chart check and active code management. During active CPR a pulse was felt. Using anatomical landmarks the needle was placed after the third attempt. Pulsatile blood flow was noted through the needle and a wire was placed without difficulty. The needle was removed and a catheter was placed over wire using typical Seldinger technique. Pulsatile blood flow was noted but the blood was quite dark. Catheter was sutured in place and affixed to transducer tubing where a pressure was generated of at least 60 to 80 mmHg and a mean arterial pressure was above 20 mmHg. Patient was an active cardiac arrest. Blood loss is as noted above. Indication for Procedure: Cardiac arrest Date: 10/26/19 Provider: TAMY FATIMA
[2019-10-26] MEDS ORDERED: ATROPINE SULFATE INJ 1 MG/10 ML DISP.SYRIN IV ONE (18:17)
[2019-10-26] MEDS ORDERED: DOPAMINE HCL/D5W 800 MG/250 ML RTU BAG IV ONE (18:17)
--- NOTE | 2019-10-26 18:18 | Operative Report ---
Bedside Procedure - History of Present Illness History of Present Illness: This 54-year-old female patient with a history of breast cancer that presents to the emergency department today with complaints nausea and vomiting for last several days. Patient states she has been unable to keep anything down but she "has been trying to stay on top of her fluids". Patient states that "everything she puts in her mouth either comes up as vomit or out as shit". Patient reports global weakness without focal deficits. Found to have severe sepsis she was admitted to ICU. Refused aggressive care and life support but became worse. She rescinded and agreed to full-resuscitation albeit time-limited trial. Indication for Procedure: Shock, cardiogenic, septic Date: 10/26/19 Provider: TAMY FATIMA - Central Line Right Internal jugular Consent obtained: Yes Central line pre-insertion: Sterile PPE donned, Chloraprep applied, Sterile drapes applied Central line size (Fr.): 7 Central line lumen type: Triple Ultrasound guided: Yes CM at insertion site: 15 Line secured with sutures: Yes Central line post-insertion: Blood return from lumens, Sutured, Sterile dressing applied, Other - confirmed on US Complications: No
--- NOTE | 2019-10-26 18:22 | Operative Report ---
Bedside Procedure - History of Present Illness History of Present Illness: This 54-year-old female patient with a history of breast cancer that presents to the emergency department today with complaints nausea and vomiting for last several days. Patient states she has been unable to keep anything down but she "has been trying to stay on top of her fluids". Patient states that "everything she puts in her mouth either comes up as vomit or out as shit". Patient reports global weakness without focal deficits. Found to have severe sepsis she was admitted to ICU. Refused aggressive care and life support but became worse. She rescinded and agreed to full-resuscitation albeit time-limited trial. Procedure Procedure: Emergent Pre-procedure diagnosis: Sepsis with shock, acute, cardiac arrest Post-procedure diagnosis: Same Surgeon: DO Preeti Estimated blood loss: None Complications: None She was identified secondary ongoing critical care, chart check. She was preoxygenated with 100% FiO2. Was hypotensive and on Levophed so ketamine was used She was given 100 mcg of fentanyl for hemodynamic stabilization and pain control followed by 100 mg of ketamine and 100 mg of succinylcholine. For adjunctive equipment was available and patient was intubated with a glide scope. On entrance she had loss of the incisors tooth 1 through 3-4 on the left prior to the intubation. A grade 1 view was seen on glide scope and the endotracheal tube was entered without difficulty. The stylette was removed and she was placed on bag ventilation. There were immediate changes in CO2 color monitor and no gastric sounds and bilateral breath sounds were heard. Patient tolerated the procedure well. Chest x-ray pending after placement of central line. Indication for Procedure: Acute respiratory failure, shock, impending respiratory arrest Date: 10/26/19 Provider: TAMY FATIMA
[2019-10-26] MEDS ORDERED: SUCCINYLCHOLINE CHLORIDE INJ 200 MG/10 ML VIAL ONE (19:22)
[2019-10-26] MEDS ORDERED: MINERAL OIL/PETROLATUM,WHITE OPH OINT 3.5 GM OU SCH (22:00)
[2019-10-26] MEDS ORDERED: FAMOTIDINE 20 MG TABLET PO SCH (22:00)
[2019-10-27] MEDS ORDERED: VANCOMYCIN HCL 750 MG in DEXTROSE 5%-WATER 250 ML IV SCH (08:00)
[2019-10-29 13:55] LABS: PATH REVIEW PATHOLOGIST REVIEWED
== END 2019-10-26 18:20 | disposition left against medical advice (07) | DRG 871 ==
LOC: ER 08:10 → EH 10:42 → ICU 11:37
PROVIDERS: ADMIT Internal Medicine Critical Care Medicine; ATTEND Internal Medicine Critical Care Medicine
PROC: 0BH17EZ Insertion of Endotracheal Airway into Trachea, Via Natural or Artificial Opening (ICD-10-PCS; principal; 2019-10-26)
PROC: 5A1935Z Respiratory Ventilation, Less than 24 Consecutive Hours (ICD-10-PCS; 2019-10-26)
PROC: 04HK33Z Insertion of Infusion Device into Right Femoral Artery, Percutaneous Approach (ICD-10-PCS; 2019-10-26)
PROC: 05HM33Z Insertion of Infusion Device into Right Internal Jugular Vein, Percutaneous Approach (ICD-10-PCS; 2019-10-26)
DX: A41.9 Sepsis, unspecified organism (principal); R65.21 Severe sepsis with septic shock; I26.09 Other pulmonary embolism with acute cor pulmonale; N17.9 Acute kidney failure, unspecified; E87.2 Acidosis; R57.0 Cardiogenic shock; C50.912 Malignant neoplasm of unspecified site of left female breast; E86.0 Dehydration; D69.6 Thrombocytopenia, unspecified; E87.5 Hyperkalemia; K52.89 Other specified noninfective gastroenteritis and colitis; D70.1 Agranulocytosis secondary to cancer chemotherapy; F17.210 Nicotine dependence, cigarettes, uncomplicated; Z17.0 Estrogen receptor positive status [ER+]
CPT/HCPCS: 31500; 36415; 36591; 36600; 51702; 71045; 80053; 81001; 82140; 82533; 82550; 82803; 82962; 82977; 83605; 83735; 84100; 84443; 84484; 85025; 85384; 85610; 85730; 87040; 87070; 87077; 87205; 92950; 93005; 93010; 94002; 96361; 96365; 96375; 99291; 99292; A4315; J0171; J0330; J0461; J0692; J1265; J1956; J2405; J3010; J3370; J3411; J3490; J7060; J7120; J7121; P9047